=== PATIENT | male | born 1970 ===

== ENCOUNTER 2023-03-29 11:01 | Outpatient (AMB) | payer OTHER, SELFPAY ==
[2023-03-29 11:11] VITALS: BP 128/72; PULSE 82; RESP 16; TEMP 36.6; O2SAT 97; BMI 41.7
--- NOTE | 2023-03-29 11:11 | A.OFFPC_ITS ---
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 Allergies ibuprofen Adverse Reaction (Mild, Uncoded 03/29/23 12:00) affects kidneys. Medication List - Last Reviewed 03/29/23 by Ailin Howard CMA albuterol 90 mcg/actuation 2 puffs q 4 hours as needed for wheezing. dulaglutide (Trulicity) 1.5 mg subcut QWEEK insulin glargine U-300 conc (Toujeo Max U-300 SoloStar) 30 units subcut DAILY lancets As directed metformin 1,000 mg PO BID Tobacco use date assessed: 03/29/23 Dental Screening Dental Screen Date: 03/29/23 Did you have a dental visit in the last 12 months?: Yes Did you have a dental problem in the last 6 months where you did not have access to dental care?: No Was dental information given to patient?: No HPI HPI Comments History of Present Illness Details 52-year-old male presents to establish care. He notes that he was last seen by his previous PCP and had blood work done a year ago. He reports PMH significant for asthma, DM2, chronic lower back pain (L3-L5 fusion) with associated urinary and bowel incontinence, arthritis, left sciatica, anxiety, and depression. His back pain was managed with Tylenol his former PCP. He had physical therapy for his back with some improvement. He attributes his back pain to a fall in 2010. 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 He notes that he is on Trulicity, Metformin, and Toujeo. He states that he has been accessing the ED for disease management and medication refills. He was on medications for anxiety and depression in the past. However, he has not been on psychotropic medication when he lost access with his PCP. He notes that he ran out of his albuterol inhaler 3 months ago. He states that he does not have diabetes supplies for blood glucose testing. He states that he wears incontinence briefs which he obtains [id number] because prescription briefs do not fit well. He notes he has managing his diet and walking to reduce his weight. He lost 36 lb in the past 8 months. He states that he has not followed by Ophthalmology or Podiatry. [facility] Medical History (Updated 03/29/23 @ 15:21 by Trae Mcfarlane CNP) Arthritis Asthma Back pain Back pain with history of spinal surgery Diabetes Incontinence of feces Incontinence of urine Sciatica Swelling of left foot Swelling of right foot Family History (Updated 03/29/23 @ 11:28 by Ailin Howard [facility]) Mother Heart attack Status post double vessel coronary artery bypass Von Willebrand disease Father Diabetes High blood pressure High cholesterol Maternal Grandfather Alzheimer disease Maternal Grandmother Alzheimer disease Paternal Grandfather Alzheimer disease Paternal Grandmother Alzheimer disease Social History (Updated 03/29/23 @ 11:30 by Ailin Howard [facility]) Household Members: Family Housing: Apartment Alcohol intake: former Patient Tobacco Use Status: Never used Tobacco e-Cigarette/Vaping Use: Never Used service: No Current occupational status: employed 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 1. Little interest or pleasure in doing things: nearly every day 2. Feeling down, depressed, or hopeless: nearly every day 3. Trouble falling or staying asleep, or sleeping too much: nearly every day 4. Feeling tired or having little energy: nearly every day 5. Poor appetite or overeating: nearly every day 6. Feeling bad about yourself - or that you are a failure or have let yourself or your family down: nearly every day 7. Trouble concentrating on things, such as reading the newspaper or watching television: nearly every day 8. Moving or speaking so slowly that other people could have noticed. Or the opposite - being so fidgety or restless that you have been moving around a lot more than usual: several days 9. Thoughts that you would be better off or of hurting yourself in some way: not at all Total score: 22 Depression Screening Interpretation: Positive Depression Screening Follow-up: Existing condition, New Medication prescribed and Community Mental Health Worker F/U Source: Developed by Drs. Daniel Tam, Delphine Stahl, Alberto Hu and colleagues, with an educational denise from [employer]. Thrive Questionnaire I am a: Patient What is your living situation today?: I have a steady place to live Within the past 12 months, did the food you bought not last and you didn't have the money to get more?: Sometimes True Within the past 12 months, did you worry whether your food would run out before you got money to buy more?: Sometimes True Do you have trouble paying for medicines?: No Do you have trouble getting transportation to medical appointments?: Yes Do you have trouble paying your heating and electricity bill?: No Do you have trouble taking care of your child, family member or friend?: No Do you have trouble with day-to-day activities such as bathing, preparing meals, shopping, managing finances, etc.?: Yes Are you currently unemployed and looking for a job?: No Are you interested in more education?: No AUDIT C Alcohol Use Questionnaire (AUDIT-C) 1. How often do you have a drink containing alcohol?: Never 3. How often do you have six or more drinks on one occasion?: Never Total Score: 0 LEILANI-7 AMB Questionnaire LEILANI-7 Feeling nervous, anxious, or on edge: 2 = More than half the days Not being able to stop or control worryin = Nearly every day Worrying too much about different things: 3 = Nearly every day Trouble relaxin = Nearly every day Being so restless that it is hard to sit still: 3 = Nearly every day Becoming easily annoyed or irritable: 3 = Nearly every day Feeling afraid as if something awful might happen: 1 = Several days Total LEILANI-7 score (0-4 normal; 5-9 mild; 10-14 moderate; 15-21 severe): 18 Source: Developed by Drs. Daniel Tam, Delphine Stahl, Alberto Hu and colleagues, with an educational denise from [employer]. ACT Questionnaire In the past 4 weeks, how much of the time did your asthma keep you from getting as much done at work, school or at home?: Most of the time During the past 4 weeks, how often have you had shortness of breath?: Once a day During the past 4 weeks, how often did your asthma symptoms wake you up at night or earlier than usual in the morning?: 4 or more nights a week During the past 4 weeks, how often have you had to use your rescue inhaler or nebulizer medication?: 2-3 times a week How would you rate your asthma control during the past 4 weeks?: Poorly controlled Score: 10 Review of Systems Const Details: Const Denies chills, Denies fatigue, Denies fever(s), Denies headache(s) and Denies weakness ENT Denies dizziness and Denies headache(s) Card Denies chest pain, Denies lightheadedness, Denies dyspnea and Denies other (Palpitations) Resp Denies cough, Denies dyspnea, Denies wheezing and Denies other ( shortness of breath) GI Reports bowel incontinence, Denies abdominal pain, Denies melena, Denies hematochezia, Denies change in bowel habits, Denies dyspepsia and Denies nausea Reports urinary incontinence, Denies hematuria and Denies dysuria Musc Reports back pain, Reports left sciatica, Denies abnormal gait, Denies numbness and Denies tingling Skin/Breast Denies rash, Denies unusual bruising and Denies wounds Neuro Denies abnormal gait, Denies dizziness, Denies headache(s), Denies memory loss, Denies numbness, Denies Sensory deficit (Neuro), Denies tingling and Denies weakness Psych Reports anxiety and Reports depression, Denies memory loss Endo Denies cold intolerance, Denies fatigue, Denies heat intolerance, Denies polydipsia and Denies polyuria Aller/Immun Denies wheezing Physical exam (Primary Care) Vital Signs: Last Vital Signs Temp 97.8 F 03/29/23 11:11 Pulse 82 03/29/23 11:11 Resp 16 03/29/23 11:11 BP 128/72 03/29/23 11:11 Pulse Ox 97 03/29/23 11:11 Oxygen Delivery Method Room Air 03/29/23 11:11 BMI result Body Mass Index 41.7 Tobacco/Smoking Status: Tobacco use Status Tobacco use date assessed 03/29/23 03/29/23 11:21 Patient Tobacco Use Status Never used Tobacco 03/29/23 11:30 e-Cigarette/Vaping Use Never Used 03/29/23 11:30 PHQ-9: PHQ-9 Score PHQ-9: Total score 22 03/29/23 12:33 Depression Screening Interpretation: Positive Depression Screening Follow-up: Existing condition, New Medication prescribed and Community Mental Health Worker F/U Const Other: General: no acute distress and well developed Nutritional Appearance: well nourished Orientation/consciousness: patient oriented x3 HENMT Head: Yes normocephalic and Yes atraumatic Eyes General: appearance normal, both eyes and all related structures Pupils: Equal, round and reactive pupils present EOM: EOMs intact bilaterally Resp Effort & Inspection: normal respiratory effort Auscultation: clear to auscultation bilaterally Cardio Rate: regular rate Rhythm: regular rhythm Heart sounds: S1 normal heart sound present, S2 normal heart sound present, no gallops, no murmurs and no rubs GI Palpation (GI): No Abdominal aortic bruit present, Soft to palpation, nontender, No hepatosplenomegaly present and No Rebound tenderness present Auscultation: normal bowel sounds General: Yes no CVA tenderness Back/Spine/Pelvis Back: no CVA tenderness Cervical Spine: cervical ROM normal and No Cervical spine tenderness Thoracic/Lumbar Spine: thoraco-lumbar ROM normal, No pain with thoraco-lumbar ROM, No thoracic spinal tenderness and No lumbar spinal tenderness Extrem General: Yes normal to inspection, No edema and No calf tenderness Positive left straight leg raise Skin General: warm and dry. Normal skin color. Normal skin turgor. Severe dry skin to right hand and feet Lesions: no lesions Rashes: no rashes Trauma: no lacerations or abrasions Wounds: no wounds Nails: fungal infection to nails of the right hands and feet Neuro General: patient oriented x3, gait normal and no focal neuro deficit Cranial nerves: Yes Equal, round and reactive pupils present Cognition (Neuro): normal cognition Gait exam (Neuro): Normal gait present Motor exam (neuro): 5/5 motor strength present throughout Sensory Exam: No Sensory defi unsteady cit (Neuro) Psych Appearance: grossly normal Affect: normal affect Attitude: cooperative Thought process: Normal thought process present Results AMB Hemoglobin A1c AMB Hemoglobin A1c 14.0 % Last Edit by Ailin Howard CMA on 03/29/23 11:51 Results Reviewed Results Reviewed: Laboratory Last Values Hgb A1c (Clinic) 14.0 % (4.0-6.0) H 03/29/23 11:49 Assessment and Plan Assessment & Plan (1) Chronic back pain: Code(s): M54.9 - Dorsalgia, unspecified; G89.29 - Other chronic pain Plan: Reports chronic back and left sciatica pain with associated urinary and bowel incontinence Unsteady gait noted, favoring the left lower extremity Gabapentin ordered. Take as prescribed Continue to take Tylenol as needed for pain Referred to weight management Follow-up with worsening or new symptoms Verbalized understanding and agreed with treatment plan. (2) Left sided sciatica: Code(s): M54.32 - Sciatica, left side Plan: As above (3) Incontinence of feces: Code(s): R15.9 - Full incontinence of feces Plan: As above He states that he wears incontinence briefs which he obtains [id number] because prescription briefs do not fit well (4) Asthma: Code(s): J45.909 - Unspecified asthma, uncomplicated Plan: Reports asthma. He notes that he ran out of his albuterol inhaler 3 months ago His ACT score is 10 and indicates poorly control asthma Albuterol inhaler refilled. Use as prescribed Follow-up with worsening or new symptoms Verbalized understanding and agreed with treatment plan. (5) Diabetes: Code(s): E11.9 - Type 2 diabetes mellitus without complications Plan: His A1c today is 14%, above goal of less than 7.0% Beatriz Alfaro, and metformin refilled. Encouraged to take as prescribed Diabetic supplies ordered for point of care testing. Advised to test blood glucose 3 times a day, record readings, and bring to next appointment ADA diet and routine exercise encouraged Referred to dietitian, nurse educator, and endocrinology Podiatry and Ophthalmology referral made Follow-up in 2 weeks or return sooner with symptoms or concerns Verbalized understanding and agreed with the treatment plan (6) Anxiety and depression: Code(s): F41.9 - Anxiety disorder, unspecified; F32.A - Depression, unspecified Plan: PHQ-9 and LEILANI-7 scores revealed severe depression and anxiety Sertraline ordered. Take as prescribed Routine exercise encouraged He met with the community navigator who will provide resources to help him connect to a therapist Follow-up in 2 weeks or return sooner with worsening or new symptoms Verbalized understanding and agreed with treatment plan. (7) Morbid obesity with BMI of 40.0-44.9, adult: Code(s): E66.01 - Morbid (severe) obesity due to excess calories; Z68.41 - Body mass index [BMI] 40.0-44.9, adult Plan: Routine exercise and healthy diet encouraged Referred to dietitian Verbalized understanding and agreed with treatment plan. (8) Laboratory tests ordered as part of a complete physical exam (CPE): Code(s): Z00.00 - Encounter for general adult medical examination without abnormal findings Plan: Fasting labs ordered as part of a complete physical exam. Advised to fast for at least 10 hours before getting labs drawn. May drink water Verbalized understanding and agreed with treatment plan. Orders: Orders Complete Blood Count Auto Diff Today Z00.00 - Encounter for general adult medical examination without abnormal findings Comprehensive [place]. Panel Fast Today Z00.00 - Encounter for general adult medical examination without abnormal findings Lipid Panel Today Z00.00 - Encounter for general adult medical examination without abnormal findings TSH reflex Free T4 Today Z00.00 - Encounter for general adult medical examination without abnormal findings UA CC w/rflx Micro + Cult Today Z00.00 - Encounter for general adult medical examination without abnormal findings PSA, Ultra Sensitive Today Z00.00 - Encounter for general adult medical examination without abnormal findings Microalbumin, Random (w Creat) Today E11.9 - Type 2 diabetes mellitus without complications AMB Hemoglobin A1c Today Z13.9 - Encounter for screening, unspecified Referrals Endocrinology Referral E11.9 - Type 2 diabetes mellitus without complications Pain Management Referral G89.29 - Other chronic pain, M54.32 - Sciatica, left side, M54.9 - Dorsalgia, unspecified Nurse Navigator Referral E11.9 - Type 2 diabetes mellitus without c omplications, E66.01 - Morbid (severe) obesity due to excess calories, Z68.41 - Body mass index [BMI] 40.0-44.9, adult Nutrition/Dietitian Referral E11.9 - Type 2 diabetes mellitus without complications, E66.01 - Morbid (severe) obesity due to excess calories, Z68.41 - Body mass index [BMI] 40.0-44.9, adult Ophthalmology Referral E11.9 - Type 2 diabetes mellitus without complications Podiatry Referral E11.9 - Type 2 diabetes mellitus without complications Medications: New sertraline 50 mg PO DAILY 30 days 30 tabs 3RF dulaglutide (Trulicity) 1.5 mg subcut QWEEK 4 weeks 4 mL 4RF insulin glargine U-300 conc (Toujeo Max U-300 SoloStar) 30 units (0.1 mL) subcut DAILY 30 days 3 mL 3RF metformin 1,000 mg PO BID 30 days 60 tabs 3RF blood-glucose meter (FreeStyle Lite Meter kit) As directed 1 ea 0RF E11.9 - Type 2 diabetes mellitus without complications blood sugar diagnostic (FreeStyle Lite Strips) As directed TID 100 ea 4RF E11.9 - Type 2 diabetes mellitus without complications lancets (FreeStyle Lancets) As directed 100 ea 4RF E11.9 - Type 2 diabetes mellitus without complications albuterol sulfate 90 mcg/actuation 2 puffs inhalation Q4-6H PRN 8.5 grams 3RF shortness of breath or wheezing gabapentin 300 mg PO BEDTIME 30 caps 1RF 30 days Coding Level of Care Code New Pt Level 3 (57888) Diagnoses Chronic back pain M54.9; G89.29 Left sided sciatica M54.32 Incontinence of feces R15.9 Asthma J45.909 Diabetes E11.9 Anxiety and depression F41.9; F32.A Morbid obesity with BMI of 40.0-44.9, adult E66.01; Z68.41 Laboratory tests ordered as part of a complete physical exam (CPE) Z00.00 Time Spent (min) 35
== END 2023-03-29 14:56 | disposition home or self-care (01) ==
PROVIDERS: PCP Internal Medicine; Visit Provider Nurse Practitioner Family
DX: J45.909 Unspecified asthma, uncomplicated (principal); E66.01 Morbid (severe) obesity due to excess calories; E11.9 Type 2 diabetes mellitus without complications; Z68.41 Body mass index [BMI] 40.0-44.9, adult; F41.9 Anxiety disorder, unspecified; M54.9 Dorsalgia, unspecified; G89.29 Other chronic pain; M54.32 Sciatica, left side; R15.9 Full incontinence of feces; F32.A Depression, unspecified; Z00.00 Encounter for general adult medical examination without abnormal findings; Z13.9 Encounter for screening, unspecified
CPT/HCPCS: 83036; 99203

== ENCOUNTER 2023-03-30 12:21 | Outpatient (AMB) | payer OTHER, SELFPAY ==
--- NOTE | 2023-03-30 12:27 | A.OFFVIS_ITS ---
Intake VS Expanded 03/30/23 12:31 Height 5 ft 8 in Weight 274 lb 6 oz BMI 41.7 Intake Visit Reasons: DM2 Allergies ibuprofen Adverse Reaction (Mild, Uncoded 03/29/23 12:00) affects kidneys. HPI Nutrition Presentation Details Pt presents for MNT for T2DM. Pt was referred by ALLEN Duval 24 hour food recall B: bowl of rice krispies/bananas, or egg and toast, water L; nuggets/ saltine crackers , peanuts , water D: airfried chicken with rice/beans, water or malik nectar juice food frequency: protein: 2-3 times/wk fish sticks/tuna, milk: 1/day yogurt/milk/ice fruit: 0-1/d, Non starchy vegetables: 0-1 serving per day Starches: Greater than 20 servings per day fried : 0-1/x/wk smoking/etoh: denies A1c 14% on 03/2023 QAT-Chnflta-Dh.Jeor Equation Height 5 ft 8 in Weight 274 lb Resting Metabolic Rate 2070.26 Calculated Activity Level Sedentary Calories Needed to Maintain Weight 2484.31 Diagnosis Nutrition problem #1 food nutri know defi As related to (etiology) #1 diagnosis As evidenced by (sign/symptom) #1 no prior educ - nutri rec Monitoring/Goals Nutrition problem monitoring level of knowledge/skill, glucose, fasting and weight Outcome progress verbalized understanding Learning/Education Readiness to learn good Stages of change pre-contemplation Educational materials provided Yes (Carbohydrate sources of foods, meal planning ) Most Recent Diabetes Results: Microalb/Creat Ratio 12.0 ug/mg cr 04/11/23 Cholesterol 173 mg/dL 04/11/23 HDL Cholesterol 34 mg/dL 04/11/23 Triglycerides 127 mg/dL 04/11/23 Creatinine 0.88 mg/dL (0.5-1.4) 04/11/23 Blood Urea Nitrogen 11 mg/dL (9-16) 04/11/23 Sodium 139 mmol/L (135-145) 04/11/23 Potassium 4.2 mmol/L (3.3-5.1) 04/11/23 Chloride 107 mmol/L (96-108) 04/11/23 Carbon Dioxide 24 mmol/L (22-29) 04/11/23 Calcium 9.4 mg/dL (8.4-10.2) 04/11/23 AST 25 U/L (5-37) 04/11/23 ALT 34 U/L (0-40) 04/11/23 Total Protein 7.5 g/dL (6.5-8.0) 04/11/23 Albumin 3.7 g/dL (3.5-5.0) 04/11/23 [facility] Medical History (Updated 03/31/23 @ 12:51 by Melody Camp APRN, OPERATIONS CLERK) Arthritis Asthma Back pain Back pain with history of spinal surgery Diabetes Incontinence of feces Incontinence of urine Lumbar radiculopathy Morbid obesity with BMI of 40.0-44.9, adult Postlaminectomy syndrome, lumbar region Sciatica Swelling of left foot Swelling of right foot Family History (Updated 03/29/23 @ 11:28 by Ailin Howard [facility]) Mother Heart attack Status post double vessel coronary artery bypass Von Willebrand disease Father Diabetes High blood pressure High cholesterol Maternal Grandfather Alzheimer disease Maternal Grandmother Alzheimer disease Paternal Grandfather Alzheimer disease Paternal Grandmother Alzheimer disease Social History (Updated 03/29/23 @ 11:30 by Ailin Howard 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 Cognitive needs: No Hearing needs: No Vision needs: Yes (Patient states he needs glasses.) Assessment & Plan Assessment & Plan (1) Diabetes: Code(s): E11.9 - Type 2 diabetes mellitus without complications Plan: wt: 124 kg Est kcal needs as per MSJ: 2500 (40% carb, 30% protein/fat) Est fluid needs as per 25-30 ml/d: 3100 Est prot per day as per 1 g/kg bw: 124 Recommend fiber intake : 8-10 g per day and gradually increase to 25-28 g per day for women and 35-38 g for men or as tolerated Recommend sodium intake per day : less than 2000 mg Educated patient on: ( R = reviewed V = verbalizes understanding N/R = needs review N/A = not applicable * Food sources of carbohydrate, adequate serving sizes and its role in various health conditions: R * Differences between complex carbohydrates a simple carbohydrates, role of fiber in diet: R * Differences between types of fats and role in diet (mono on saturated fat fatty acids, saturated fatty acids, trans fats): R * Food sources of sodium in salt and healthy modifications for heart health in kidney health: R * Vitamins and minerals: R * Healthy plate method concept: R * Physical activity: Benefits a precaution: R * Hypoglycemia protocol (rule of 15): R * Dietary prevention of Hyperglycemia: R Patient Instructions: Practice mindful eating Reduce on total carbohydrate at mealtime to less than 75 g choosing whole grain foods, following healthy plate method Coding Level of Care Code Nutr Indiv Intake (36866) Diagnoses Diabetes E11.9 Time Spent (min) 40
[2023-03-30 12:31] VITALS: BMI 41.7
[2023-04-12 08:57] VITALS: BMI 41.7
== END 2023-03-30 13:13 | disposition home or self-care (01) ==
PROVIDERS: PCP Nurse Practitioner Family; Visit Provider Dietitian, Registered
DX: E11.9 Type 2 diabetes mellitus without complications (principal)

== ENCOUNTER → 2023-03-30 12:21 | Outpatient (BNVA) | payer OTHER, SELFPAY | PROVIDERS: PCP Nurse Practitioner Family; Visit Provider Dietitian, Registered | DX: E11.9 Type 2 diabetes mellitus without complications (principal); Z71.3 Dietary counseling and surveillance | CPT/HCPCS: 97802 ==

== ENCOUNTER 2023-03-31 10:48 | Outpatient (AMB) | payer OTHER, SELFPAY ==
--- NOTE | 2023-03-31 10:56 | MHC.OFFVIS ---
Intake Vital Signs 03/31/23 11:02 Height 5 ft 8 in Weight 275 lb BMI 41.8 BP 157/91 H Blood Pressure Location Lt brachial Position Sitting Respiration 18 Pulse 78 Pulse Source Pulse Oximeter Pulse Oximetry (%) 97 Oxygen Delivery Method Room Air Intake Visit Reasons: BACK PAIN WITH LEFT SIDED SCIATICA Allergies ibuprofen Adverse Reaction (Mild, Uncoded 03/29/23 12:00) affects kidneys. HPI HPI Comments History of Present Illness Details Jean is a very pleasant 52-year-old male who presents to the office today for evaluation and management of his chronic lower back pain. Patient reports 8/10 left lower back pain that radiates down his left leg into his left foot. He does report some associated left lower extremity weakness, numbness and tingling. Patient status post L3, L4, L5 fusion that was done at [facility] in 2010. He reports after the fusion he developed the LLE neuropathy, weakness and loss of bowel and bladder which is still present however unchanged since the surgery. He reports his last MRI was approximately 7 years ago and he last saw a neurosurgeon approximately 8 years ago. 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 The spinal cord stimulator did provide him with pain relief as well as sensation of bowel and bladder where he was no longer totally incontinent. The plan 7 years ago was to repeat spinal cord stimulator implant however patient was lost to follow-up due to social circumstances. Patient states he last attended physical therapy many years ago, he has tried [id number] medications, muscle relaxers and gabapentin. 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 He had steroid injections at [facility] many years ago and reports that they did not provide him any pain relief. Patient reports the pain is negatively impacting his mobility, functioning, ability to perform activities of daily living, care for himself and his children and is also caused him worsening depression. The patient reports he has been increasing his activity and walking more which does exacerbate his pain. He has recently lost approximately 50 lb with dietary changes and increased activity. He also reports uncontrolled/unmanaged diabetes over the last couple of years due to social circumstances and ultimately losing his primary care doctor. He was receiving his diabetes medications through emergency room visits and states last ER visit his blood sugar was 730. His A1c at recent primary care visit was 14% and his fasting glucose yesterday was 417. In terms of muscle damage condition is described as aching, spasming, shooting, stabbing, sharp, tingling, pins and needles. Patient's past medical history significant for diabetes, arthritis, asthma, urinary or bowel incontinence, post-laminectomy syndrome, failed spinal cord stimulator implant and obesity. Patient denies implantable devices, pacemaker or defibrillator. Patient denies current use of tobacco, alcohol or illicit substances. [facility] Medical History (Updated 03/31/23 @ 12:51 by Melody Camp, HANDHOLE MACHINE OPERATOR, SENIOR SUPPORT ANALYST) Arthritis Asthma Back pain Back pain with history of spinal surgery Diabetes Incontinence of feces Incontinence of urine Lumbar radiculopathy Morbid obesity with BMI of 40.0-44.9, adult Postlaminectomy syndrome, lumbar region Sciatica Swelling of left foot Swelling of right foot Family History (Updated 03/29/23 @ 11:28 by Ailin Howard [facility]) Mother Heart attack Status post double vessel coronary artery bypass Von Willebrand disease Father Diabetes High blood pressure High cholesterol Maternal Grandfather Alzheimer disease Maternal Grandmother Alzheimer disease Paternal Grandfather Alzheimer disease Paternal Grandmother Alzheimer disease Social History (Updated 03/29/23 @ 11:30 by Ailin Howard [facility]) Household Members: Family Housing: Apartment Alcohol intake: former Patient Tobacco Use Status: Never used Tobacco e-Cigarette/Vaping Use: Never Used service: No Current occupational status: employed 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 Answers questions appropriately. Fully engaged in examination. Skin: warm, dry, intact without visible rashes or lesions. HEENT: Normocephalic. Conjuntivae clear without exudate. Sclera non-icteric. Hearing intact. Cardiac: External chest normal in appearance. Respiratory: No signs of trauma. No signs of respiratory distress. No cough, audible wheezing or stridor. Abdomen: without gross distension. MS: No obvious swelling or deformities. Neurological: Oriented to person, place, time and situation. Thought process intact. Psychiatric: Appropriate mood and affect. Good judgment and insight. Back/Spine/Pelvis Other: Lumbar exam: Able to stand on bilateral tiptoes and bilateral heels. Able to transition from sit to stand unassisted. Ambulates with bilaterally normal heel strike and toe off Tender to palpation over paraspinal muscles Strength: 5/5 BLE Sensation: intact and symmetric BLE DTR: intact and symmetric Straight leg raise with and without dorsiflexion positive on left. Facet loading positive bilaterally LARRY positive bilaterally Assessment & Plan Assessment & Plan (1) Lumbar radiculopathy: Code(s): M54.16 - Radiculopathy, lumbar region (2) Morbid obesity with BMI of 40.0-44.9, adult: Code(s): E66.01 - Morbid (severe) obesity due to excess calories; Z68.41 - Body mass index [BMI] 40.0-44.9, adult (3) Chronic back pain: Code(s): M54.9 - Dorsalgia, unspecified; G89.29 - Other chronic pain (4) Postlaminectomy syndrome, lumbar region: Code(s): M96.1 - Postlaminectomy syndrome, not elsewhere classified Plan Jean is a very pleasant 52-year-old male who presented to the office today for evaluation management of his chronic lower back pain secondary to post-laminectomy syndrome. 1. Medical records have been requested from [facility], [facility]. 2. MRI without contrast ordered today, patient with complicated surgical history of his back with significant neuro deficits including radiculopathy and urinary/bowel incontinence. MRI was not ordered STAT as these are not new symptoms and have been ongoing for many years. May consider referral to Dr. Patterson for evaluation pending MRI results. 3. PT eval and treat to assist with mobility, strengthening and core support. Lengthy discussion with patient advising that he would be best managed with SCS, however he would need to drastically improve his blood glucose control and lower his A1C to below 8. Advised patient to ensure that he follows up with endocrinology as referred at recent PCP visit. Once A1C is better controlled he would need psych eval prior to SCS trial. Patient will be referred for psych eval once his diabetes is better controlled and can be considered a candidate for implantable device. Discussed options for treatment including diagnostic interventional testing, epidural steroid injections, peripheral nerve stimulation with Sprint, RFA and more permanent neuromodulation. Informational pamphlets provided. Patient will follow up here after MRI to review results. All questions and concerns have been answered and patient agrees with the plan. Follow up after injections and sooner if needed. Orders: Orders MR lumbar spine wo con Today E66.01 - Morbid (severe) obesity due to excess calories, M54.16 - Radiculopathy, lumbar region, M96.1 - Postlaminectomy syndrome, not elsewhere classified, Z68.41 - Body mass index [BMI] 40.0-44.9, adult PT Evaluation and Treatment Today G89.29 - Other chronic pain, M54.16 - Radiculopathy, lumbar region, M54.9 - Dorsalgia, unspecified, M96.1 - Postlaminectomy syndrome, not elsewhere classified Coding Level of Care Code New Pt Level 4 (02049) Diagnoses Lumbar radiculopathy M54.16 Morbid obesity with BMI of 40.0-44.9, adult E66.01; Z68.41 Chronic back pain M54.9; G89.29 Postlaminectomy syndrome, lumbar region M96.1
[2023-03-31 11:02] VITALS: BP 157/91; PULSE 78; RESP 18; O2SAT 97; BMI 41.8
== END 2023-03-31 11:49 | disposition home or self-care (01) ==
PROVIDERS: PCP Nurse Practitioner Family; Visit Provider Registered Nurse Emergency
DX: M54.16 Radiculopathy, lumbar region (principal); E66.01 Morbid (severe) obesity due to excess calories; Z68.41 Body mass index [BMI] 40.0-44.9, adult; M54.9 Dorsalgia, unspecified; G89.29 Other chronic pain; M96.1 Postlaminectomy syndrome, not elsewhere classified
CPT/HCPCS: 99204

== ENCOUNTER → 2023-03-31 10:48 | Outpatient (BNVA) | payer OTHER, SELFPAY | PROVIDERS: PCP Nurse Practitioner Family; Visit Provider Registered Nurse Emergency | DX: M54.16 Radiculopathy, lumbar region (principal); G89.29 Other chronic pain; M54.9 Dorsalgia, unspecified; M96.1 Postlaminectomy syndrome, not elsewhere classified; E66.01 Morbid (severe) obesity due to excess calories; Z68.41 Body mass index [BMI] 40.0-44.9, adult | CPT/HCPCS: 99202 ==

== ENCOUNTER 2023-04-11 11:27 | Outpatient (REF) | payer OTHER, SELFPAY ==
[2023-04-11 13:42] LABS: MANUAL DIFF FLAG NO
[2023-04-11 13:54] LABS: Basophils Percent Auto 0.4 % (0-2); Eosinophils Absolute Auto 0.1 X10*3/uL (0.0-0.4); Eosinophils Percent Auto 1.6 % (0-4); Hematocrit 51.1 % (42.0-52.0); Imm Gran Abs Auto 0.01 X10*3/uL (0.00-0.03); Imm Gran Pct Auto 0.2 % (0.0-0.4); Lymphocytes Absolute Auto 2.8 X10*3/uL (1.2-4.9); Mean Corpuscular HGB Conc 31.3 g/dl (31.0-36.0); Mean Corpuscular Volume 86.2 fL (80.0-98.0); Mean Platelet Volume 10.6 fL (9.4-12.4); Monocytes Absolute Auto 0.5 X10*3/uL (0.1-1.2); Monocytes Percent Auto 8.3 % (2-11); Neutrophils Absolute Auto 2.1 x10*3/uL (2.0-8.3); Neutrophils Percent Auto 38.5 % (45-73); Platelet Count 276 X10*3/uL (160-400); Red Blood Count 5.93 X10*6/uL (4.60-5.80); Red Cell Distribution Width 13.4 % (11.0-16.0); White Blood Count 5.5 X10*3/uL (4.8-10.8)
[2023-04-11 13:59] LABS: Appearance Urine Clear; Color Urine Yellow; Glucose Urine UA Negative (Negative); Leukocyte Esterase Urine Negative (Negative); Nitrite Urine Negative (Negative); PH 5.5 (5.0-9.0); Specific Gravity - Urine 1.015 (1.005-1.025); Urine Blood Negative (Negative); Urine Ketones Trace mg/dL (Negative); Urine Protein Negative (Neg-Trace)
[2023-04-11 14:25] LABS: Alanine Aminotransferase 34 U/L (0-40); Albumin Level 3.7 g/dL (3.5-5.0); Alkaline Phosphatase 108 U/L (39-117); Anion Gap 12 (12-20); Aspartate Amino Transferase 25 U/L (5-37); Bilirubin Total 0.5 mg/dL (0.0-1.0); Blood Urea Nitrogen 11 mg/dL (9-16); Calcium 9.4 mg/dL (8.4-10.2); Carbon Dioxide 24 mmol/L (22-29); Chloride 107 mmol/L (96-108); Cholesterol 173 mg/dL; Creatinine Urine 83.29 mg/dL; Estimated Glomerular Filt Rate > 60; Glucose Fasting 140 mg/dL (60-99); HDL Cholesterol 34 mg/dL; LDL Cholesterol Calculated 114 mg/dl; Potassium 4.2 mmol/L (3.3-5.1); Sodium 139 mmol/L (135-145); Total Protein 7.5 g/dL (6.5-8.0); Triglycerides 127 mg/dL
[2023-04-11 14:42] LABS: TSH reflex Free T4 0.78 uIU/mL (0.32-4.0)
[2023-04-15 17:44] LABS: PSA, Ultra Sensitive 1.03 ng/mL
== END 2023-04-11 11:28 | disposition home or self-care (01) ==
LOC: HO.HMGCLDS 11:27
PROVIDERS: PCP Nurse Practitioner Family; Visit Provider Nurse Practitioner Family
DX: Z00.00 Encounter for general adult medical examination without abnormal findings (principal); Z12.5 Encounter for screening for malignant neoplasm of prostate; E11.9 Type 2 diabetes mellitus without complications
CPT/HCPCS: 36415; 80053; 80061; 81003; 82043; 84153; 84443; 85025

== ENCOUNTER 2023-04-14 15:58 | Outpatient (AMB) | payer OTHER, SELFPAY ==
--- NOTE | 2023-04-14 16:00 | MHC.PC.OV ---
Vital Signs 04/14/23 16:02 Height 5 ft 8 in Weight 277 lb BMI 42.1 BP 126/72 Blood Pressure Location Lt brachial Position Sitting Pulse 78 Pulse Source Pulse Oximeter Pulse Oximetry (%) 98 Intake Visit Reasons: 2 wks DM, asthma, chronic pain,anxiety, depression Intake Note: pt is here for 2 wk f/u DM, asthma, chronic pain, anxiety, depression Allergies ibuprofen Adverse Reaction (Mild, Uncoded 04/14/23 16:16) affects kidneys. Medication List - Last Reconciled 04/14/23 by Trae Mcfarlane CNP albuterol sulfate 90 mcg/actuation (Ventolin HFA) 2 puffs inhalation Q4-6H PRN blood sugar diagnostic (MumboeTouch Ultra Test strips) As directed TID blood-glucose meter (MumboeTouch Ultra2 Meter) As directed dulaglutide (Trulicity) 1.5 mg subcut QWEEK 4 weeks gabapentin 300 mg PO BEDTIME 30 days insulin glargine U-300 conc (Toujeo Max U-300 SoloStar) 30 units (0.1 mL) subcut DAILY 30 days lancets (MumboeTouch UltraSoft 2 Lancet) As directed TID lancets As directed metformin 1,000 mg PO BID 30 days sertraline 50 mg PO DAILY 30 days Tobacco use date assessed: 03/29/23 Dental Screening Dental Screen Date: 04/14/23 Did you have a dental visit in the last 12 months?: Yes Did you have a dental problem in the last 6 months where you did not have access to dental care?: No Was dental information given to patient?: Patient has dentist HPI HPI Comments History of Present Illness Details 52-year-old male presents for diabetes, asthma, chronic back pain, anxiety, and depression follow-up. He established care 2 weeks ago. He was prescribed sertraline and gabapentin. His diabetic meds and supplies were renewed. His albuterol inhaler was refilled. He was referred to pain management, Endocrinology, Ophthalmology, and Podiatry. Labs were ordered. He met with the community navigator who provided resources to help him connect to a therapist. He states that he has been taking Sertraline as prescribed with no significant improvement. He reports itching underneath the skin fold of his abdomen for the past 1 month. He states that the gabapentin is helping his back pain. He notes he was not given albuterol inhaler form the pharmacy. He notes he has been seen medical field representative and pain management. He has an appointment with pulmonology next month. He has not heard from endocrinology, ophthalmology, and podiatry. He also has not heard from a therapist. [facility] Medical History (Updated 04/14/23 @ 16:48 by Trae Mcfarlane CNP) Arthritis Asthma Back pain Back pain with history of spinal surgery Diabetes Incontinence of feces Incontinence of urine Lumbar radiculopathy Morbid obesity with BMI of 40.0-44.9, adult Postlaminectomy syndrome, lumbar region Sciatica Swelling of left foot Swelling of right foot Family History (Updated 03/29/23 @ 11:28 by Ailin Howard [facility]) Mother Heart attack Status post double vessel coronary artery bypass Von Willebrand disease Father Diabetes High blood pressure High cholesterol Maternal Grandfather Alzheimer disease Maternal Grandmother Alzheimer disease Paternal Grandfather Alzheimer disease Paternal Grandmother Alzheimer disease Social History (Updated 03/29/23 @ 11:30 by Ailin Howard [facility]) Household Members: Family Housing: Apartment Alcohol intake: former Patient Tobacco Use Status: Never used Tobacco e-Cigarette/Vaping Use: Never Used service: No Current occupational status: employed 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 1. Little interest or pleasure in doing things: several days 2. Feeling down, depressed, or hopeless: nearly every day 3. Trouble falling or staying asleep, or sleeping too much: nearly every day 4. Feeling tired or having little energy: nearly every day 5. Poor appetite or overeating: more than half the days 6. Feeling bad about yourself - or that you are a failure or have let yourself or your family down: more than half the days 7. Trouble concentrating on things, such as reading the newspaper or watching television: more than half the days 8. Moving or speaking so slowly that other people could have noticed. Or the opposite - being so fidgety or restless that you have been moving around a lot more than usual: several days 9. Thoughts that you would be better off or of hurting yourself in some way: not at all Total score: 17 Depression Screening Interpretation: Positive Depression Screening Follow-up: Existing condition and In treatment 51654 - PHQ-9 Billing: Yes Source: Developed by Drs. Daniel Tam, Delphine Stahl, Alberto Hu and colleagues, with an educational denise from [email or web address]. LEILANI-7 AMB Questionnaire LEILANI-7 Date LEILANI - 7 assessed: 04/14/23 Feeling nervous, anxious, or on edge: 3 = Nearly every day Not being able to stop or control worryin = Nearly every day Worrying too much about different things: 3 = Nearly every day Trouble relaxin = Nearly every day Being so restless that it is hard to sit still: 3 = Nearly every day Becoming easily annoyed or irritable: 3 = Nearly every day Feeling afraid as if something awful might happen: 0 = Not at all Total LEILANI-7 score (0-4 normal; 5-9 mild; 10-14 moderate; 15-21 severe): 18 Source: Developed by Drs. Daniel Tam, Delphine Stahl, Alberto Hu and colleagues, with an educational denise from [email or web address]. LEILANI-7 Assessment Billing LEILANI-7 Assessment Tool: LEILANI-7 Assessment 15327 ACT Questionnaire In the past 4 weeks, how much of the time did your asthma keep you from getting as much done at work, school or at home?: Some of the time During the past 4 weeks, how often have you had shortness of breath?: More than once a day During the past 4 weeks, how often did your asthma symptoms wake you up at night or earlier than usual in the morning?: Once or twice per week During the past 4 weeks, how often have you had to use your rescue inhaler or nebulizer medication?: More than 3 times per day (uses his sons, does not have one for himself ) How would you rate your asthma control during the past 4 weeks?: Poorly controlled ACT Interpretation: Positive ACT Branch: Change in medication Score: 11 Review of Systems Const Details: Const Denies chills, Denies fatigue, Denies fever(s), Denies headache(s) and Denies weakness ENT Denies dizziness and Denies headache(s) Card Denies chest pain, Denies lightheadedness, Denies dyspnea and Denies other (Palpitations) Resp Denies cough, Denies dyspnea, Denies wheezing and Denies other ( shortness of breath) GI Denies abdominal pain, Denies melena, Denies hematochezia, Denies change in bowel habits, Denies dyspepsia and Denies nausea Denies hematuria and Denies dysuria Musc Denies abnormal gait, Denies myalgias, Denies arthralgias, Denies numbness and Denies tingling Skin/Breast Report itching, Denies rash, Denies unusual bruising and Denies wounds Neuro Denies abnormal gait, Denies dizziness, Denies headache(s), Denies memory loss, Denies numbness, Denies Sensory deficit (Neuro), Denies tingling and Denies weakness Psych Reports anxiety and Reports depression, Denies memory loss Endo Denies fatigue Aller/Immun Denies wheezing Physical exam (Primary Care) Vital Signs: Last Vital Signs Pulse 78 04/14/23 16:02 BP 126/72 04/14/23 16:02 Pulse Ox 98 04/14/23 16:02 BMI result Body Mass Index 42.1 Tobacco/Smoking Status: Tobacco use Status Tobacco use date assessed 03/29/23 04/14/23 16:01 Patient Tobacco Use Status Never used Tobacco 04/14/23 16:01 e-Cigarette/Vaping Use Never Used 04/14/23 16:01 PHQ-9: PHQ-9 Score PHQ-9: Total score 17 04/14/23 16:14 Depression Screening Interpretation: Positive Depression Screening Follow-up: Existing condition and In treatment Const Other: General: no acute distress and well developed Nutritional Appearance: well nourished Orientation/consciousness: patient oriented x3 HENDC Head: Yes normocephalic and Yes atraumatic Eyes General: appearance normal, both eyes and all related structures Pupils: Equal, round and reactive pupils present EOM: EOMs intact bilaterally Resp Effort & Inspection: normal respiratory effort Auscultation: clear to auscultation bilaterally Cardio Rate: regular rate Rhythm: regular rhythm Heart sounds: S1 normal heart sound present, S2 normal heart sound present, no gallops, no murmurs and no rubs GI Palpation (GI): No Abdominal aortic bruit present, Soft to palpation, nontender, No hepatosplenomegaly present and No Rebound tenderness present Auscultation: normal bowel sounds General: Yes no CVA tenderness Back/Spine/Pelvis Back: no CVA tenderness Cervical Spine: cervical ROM normal and No Cervical spine tenderness Thoracic/Lumbar Spine: thoraco-lumbar ROM normal, No pain with thoraco-lumbar ROM, No thoracic spinal tenderness and No lumbar spinal tenderness Extrem General: Yes normal to inspection, No edema and No calf tenderness Skin General: warm and dry. Normal skin color. Normal skin turgor Lesions: no lesions Rashes: Depigmentation of the skin underneath the abdomen; consistent with fungal rash Trauma: no lacerations or abrasions Wounds: no wounds Nails: normal Neuro General: patient oriented x3, gait normal and no focal neuro deficit Cranial nerves: Yes Equal, round and reactive pupils present Cognition (Neuro): normal cognition Gait exam (Neuro): Normal gait present Sensory Exam: No Sensory deficit (Neuro) Psych Appearance: grossly normal Affect: normal affect Attitude: cooperative Thought process: Normal thought process present Assessment and Plan Assessment & Plan (1) Diabetes: Code(s): E11.9 - Type 2 diabetes mellitus without complications Plan: Continue with current diabetic treatment regimen ADA diet and routine exercise encouraged Continue follow-up with medical field representative Recent blood work reviewed with the patient. LDL is 114, slightly above goal of less than 100. Advised to limit foods high in saturated fat and avoid foods high in trans fat Check blood glucose 3 times a day, document readings, and bring to next appointment Verbalized understanding and agreed with the treatment plan. (2) Asthma: Code(s): J45.909 - Unspecified asthma, uncomplicated Plan: He notes he was not given albuterol inhaler form the pharmacy Possibly due to nationwide shortage of albuterol inhaler ACT score is 10, poorly controlled asthma Ventolin ordered. Use as prescribed Follow-up with pulmonology as planned Return with worsening or new symptoms Verbalized understanding and agreed with treatment plan. (3) Chronic back pain: Code(s): M54.9 - Dorsalgia, unspecified; G89.29 - Other chronic pain Plan: He states that he has been taking Sertraline as prescribed with no significant improvement Continue to take gabapentin as prescribed May take ibuprofen or Tylenol for pain or discomfort Warm/cold compresses encouraged Follow-up with pain management as planned Return with worsening or new symptoms Verbalized understanding and agreed with treatment plan. (4) Anxiety and depression: Code(s): F41.9 - Anxiety disorder, unspecified; F32.A - Depression, unspecified Plan: PHQ-9 and LEILANI-7 scores revealed moderately severe depression and severe anxiety Continue to take sertraline as prescribed Routine exercise encouraged Advised to contact the nurse navigator if is not contacted to schedule an appointment with a therapist within the next week Follow-up in 1 month or return sooner with new or worsening symptoms Verbalized understanding and agreed with treatment plan. (5) Morbid obesity with BMI of 40.0-44.9, adult: Code(s): E66.01 - Morbid (severe) obesity due to excess calories; Z68.41 - Body mass index [BMI] 40.0-44.9, adult Plan: BMI is 42.1 Healthy diet and routine exercise encouraged Continue follow-up with medical field representative Return with concerns or symptoms Verbalized understanding and agreed with treatment plan. (6) Fungal rash of torso: Code(s): B36.9 - Superficial mycosis, unspecified Plan: Reports itching underneath the skin fold of his abdomen for the past 1 month Depigmentation of the skin underneath the abdomen; consistent with fungal rash Nystatin cream ordered. Use as prescribed Follow-up with worsening or new signs and symptoms Verbalized understanding and agreed with treatment plan. Medications: New albuterol sulfate 90 mcg/actuation (Ventolin HFA) 2 puffs inhalation Q4-6H PRN 8.5 grams 3RF shortness of breath or wheezing nystatin apply on affected skin 1 appl topical QID 14 days 30 grams 1RF B37.2 - Candidiasis of skin and nail Coding Level of Care Code Est Pt Level 4 (00870) Diagnoses Diabetes E11.9 Asthma J45.909 Chronic back pain M54.9; G89.29 Anxiety and depression F41.9; F32.A Morbid obesity with BMI of 40.0-44.9, adult E66.01; Z68.41 Fungal rash of torso B36.9 Additional Codes LEILANI-7 Assessment Billing - LEILANI-7 Assessment Tool: LEILANI-7 Assessment 59174 ([id number]) Time Spent (min) 35
[2023-04-14 16:02] VITALS: BP 126/72; PULSE 78; O2SAT 98; BMI 42.1
== END 2023-04-14 16:40 | disposition home or self-care (01) ==
PROVIDERS: PCP Nurse Practitioner Family; Visit Provider Nurse Practitioner Family
DX: E11.9 Type 2 diabetes mellitus without complications (principal); J45.909 Unspecified asthma, uncomplicated; F41.9 Anxiety disorder, unspecified; F32.A Depression, unspecified; M54.9 Dorsalgia, unspecified; G89.29 Other chronic pain; E66.01 Morbid (severe) obesity due to excess calories; Z68.41 Body mass index [BMI] 40.0-44.9, adult; B36.9 Superficial mycosis, unspecified
CPT/HCPCS: 96127; 99214

== ENCOUNTER 2023-04-20 10:51 | Outpatient (RCR) | payer OTHER, SELFPAY ==
[2023-04-20 11:14] VITALS: BP 161/79; PULSE 64; O2SAT 97
--- NOTE | 2023-04-20 13:09 | MHC.PT.EP ---
[facility] [place] [facility] [place] [facility] [place] [facility] [address] Gege Dubon [address] [phone] F: [phone] F: [phone] F: [phone] F: [phone] Physical Therapy Plan of Care Date of Evaluation: Date of Surgery: 2011 Diagnosis: POSTLAMINECTOMY SYNDROME, RADICULOPATHY LUMBAR REGION Assessment: 52 YO MALE REF TO PT WITH DX OF POST LAMINECTOMY SYNDROME, CHRONIC LBP, LUMBAR RADICULOPATHY- OF SIGNIFICANCE, THE Pt HAS A H/O LUMBAR FUSION L3-L4-L5 IN 2011 AND HAS HAD PERSISTENT PAIN AND PROGRESSIVE BOWEL/BLADDER INCONTINENCE SINCE. HE HAD AN IMPLANTED STIMULATOR, WHICH PROVIDED RELIEF, BUT DUE TO AN INFECTION, OIT WAS REMOVED. 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 OBJECTIVE FINDINGS: DECR POSTURE, (+) TISSUE TENSION AND IRRIT IN GERTRUDE THORACOLS PS AND GERTRDUE HIP MM, DECR TRUNK AND HIP AROM, (+) LUMBOPELVIC ASYMM; STRENGTH DEFICITS IN HIS LUMBOPELVIC/ PROX LEs, AND PER Pt, CONSTANT LS PAIN 7/10 INTO GERTRUDE HIPS AND HEELS. FUNCTIONALLY, THE Pt IS LIMITED W TRANSITIONAL MVMTS, ALTERED AND INEFFICIENT GAIT, LIMITED SQUAT MECH, DECR AUNDREA TO PROLONGED STANDING AND WALKING, FECAL AND URINALRY INCONTINENCE CONCERNS, AND DIFFIC WITH PHYSICALLY DEMANDING TASKS. THE Pt WOULD BENEFIT FORM PT TO ADDRESS THE ABOVE FINDINGS-> SOFT TISSUE MOB/ STAB/ STRENGTHENING, DEV A HEP AND SELF-SX STRATEGIES, AND PAIN MGMT ABLE TO MAXIMIZE HIS FUNCTIONAL INDEPENDENCE. Frequency and Duration: The patient will be seen 2 x WK x 5 WKS Short Term Goals: *Pt DEMON IMPROVED POSTURAL SELF-CORRECT *Pt DEMON PROPER SQUAT MECHANICS TO REDUCE POSTERIOR CHAIN TISSUE TENSION *ED AND Pt DEMON PROPER ABDOM / LUMBOPELVIC STAB INITIATE HEP *DECR THORACOLUMB PAIN TO 3-4/10 AND HEEL PAIN DECR BY 50% *IMPROVE HIP FLEXIBILITY AND TRUNK AROM Longterm Goals: *Pt INDEP W SELF-CORRECT POSTURE AND DEMON IMPROVED, MORE EFFICIENT BODY MECH W SIMUL ADLs/ WORK TASKS *Pt WILL IMPROVE LUMBOPELVIC/ LEs STRENGTH BY 1 GRADE *Pt PERFORM REG ADLs AND FITNESS ROUTINE EVIDENT W IMPROVED OSWESTRY SCORE (AT EVAL ) *Pt INDEP W PROGR HEP AND SELF-SX MGMT TECHN Treatment Plan: Modalities to reduce pain, spasms and effusion. Manual therapy to restore motion and function. Therapeutic exercise to improve strength and flexibility. Neuromuscular re-education for posture and balance. Therapeutic activities to return to functional activities of daily living. Electronically signed by: RUI YADAV,PT Please sign and return to therapist. Thank you for your referral.
--- NOTE | 2023-05-10 11:40 | MHC.PT.DC ---
[facility] [place] [facility] [place] [facility] [place] Office [address] Gege Dubon 140 [facility] [phone] F: [phone] F: [phone] F: [phone] F: [phone] Physical Therapy Discharge Report Diagnosis: POSTLAMINECTOMY SYNDROME, RADICULOPATHY LUMBAR REGION Date of Surgery: 2011 Date of Evaluation: 04/20/23 Date of Discharge: 05/10/23 Treatments to Date: 1 Cancellations to Date: 1 No Shows to Date: 3 Discharge Status: Patient Elected to Stop Visit Non-compliance Discharge Summary: THE Pt WAS A GOOD PT CANDIDATE, HOWEVER, HE DID NOT ATTEND F/U PT APPTS. HE IS THEREFORE D/C PER OUR PT DEPT ATTENDANCE POLICY. HE DID NOT MEET HIS GOALS. Electronically signed by: RUI YADAV,PT Please sign and return to therapist. Thank you for your referral.
== END 2023-05-10 11:41 | disposition home or self-care (01) ==
LOC: HO.PT 10:51
PROVIDERS: PCP Nurse Practitioner Family; Visit Provider Registered Nurse Emergency
DX: M96.1 Postlaminectomy syndrome, not elsewhere classified (principal); M54.16 Radiculopathy, lumbar region; M54.9 Dorsalgia, unspecified
CPT/HCPCS: 97162; 97530

== ENCOUNTER 2023-06-16 12:21 | Outpatient (AMB) | payer OTHER, SELFPAY ==
[2023-06-16 12:26] VITALS: BP 122/84; PULSE 87; TEMP 36.7; O2SAT 99; BMI 43.8
--- NOTE | 2023-06-16 12:26 | A.OFFPC_ITS ---
Vital Signs 06/16/23 12:26 Height 5 ft 8 in Weight 288 lb 4 oz BMI 43.8 BP 122/84 Blood Pressure Location Lt brachial Position Sitting Pulse 87 Pulse Source Pulse Oximeter Temp 98.1 F Temp Source Oral Pulse Oximetry (%) 99 Oxygen Delivery Method Room Air Intake Visit Reasons: 1 mth anxiety depression Intake Note: Patient is here to follow up on anxiety and depression. Pain in right shoulder is getting worse. Allergies ibuprofen Adverse Reaction (Mild, Uncoded 06/16/23 12:43) affects kidneys. Medication List - Last Reviewed 06/16/23 by Maame Anderson MA albuterol sulfate 90 mcg/actuation (Ventolin HFA) 2 puffs inhalation Q4-6H PRN blood sugar diagnostic (OneTouch Ultra Test strips) As directed TID blood-glucose meter (EquidateTouch Ultra2 Meter) As directed dulaglutide (Trulicity) 3 mg subcut QWEEK gabapentin 300 mg PO BEDTIME 30 days insulin glargine U-300 conc (Toujeo Max U-300 SoloStar) 34 units subcut DAILY lancets (EquidateTouch UltraSoft 2 Lancet) As directed TID lancets As directed metformin 1,000 mg PO BID 30 days nystatin 1 appl topical QID 14 days venlafaxine ER 75 mg PO DAILY 30 days Tobacco use date assessed: 06/16/23 Dental Screening Dental Screen Date: 06/16/23 Did you have a dental visit in the last 12 months?: Yes Did you have a dental problem in the last 6 months where you did not have access to dental care?: No Was dental information given to patient?: Patient has dentist HPI HPI Comments History of Present Illness Details 52-year-old male presents for anxiety an d depression follow-up. He has past medical history significant for diabetes, asthma, and chronic back pain. Admits to taking his medications as prescribed. He states that sertraline has not been effective in relieving his anxiety and depression symptoms. His symptoms have progressively worsened. He admits to exercising by walking for 4-5 miles daily. He was evaluated by [facility] pain management, for chronic back pain, on 03/31/2023. MRI was ordered. May referred to customer support specialist depending on MRI results. He was referred to physical therapy. His spinal cord stimulator trial was recommended. However, the patient's A1c has to be below 8%. He was advised to follow-up with trench digger as planned. Multiple treatment modalities for his back pain were discussed. He was advised to follow-up after the MRI is done and resulted. He notes that he started going to PT after 2 sessions due to He was evaluated by [facility] endocrinology on 02/15/2023. His A1c was 10.0%, above goal of less that 7.0% but significant improvement from previous A1C which was 14.0% in March.He notes that he is scheduled to follow up in August. He states he was maintaining a healthy diet until 2 weeks ago when he started eating poorly while he is working on the overnight. He attributes his poor eating habit to increased anxiety and depression symptoms. He gained 11 lb since his last 2 months ago. He is currently being followed by endocrinology, pulmonology, dietitian, and pain management. [facility] Medical History Postlaminectomy syndrome, lumbar region Lumbar radiculopathy Morbid obesity with BMI of 40.0-44.9, adult Asthma Incontinence of urine Incontinence of feces Swelling of right foot Swelling of left foot Arthritis Sciatica Back pain with history of spinal surgery Back pain Diabetes Family History (Reviewed 06/16/23 @ 12:30 by Ailin Howard [facility]) Mother Heart attack Status post double vessel coronary artery bypass Von Willebrand disease Father Diabetes High blood pressure High cholesterol Maternal Grandfather Alzheimer disease Maternal Grandmother Alzheimer disease Paternal Grandfather Alzheimer disease Paternal Grandmother Alzheimer disease Social History (Reviewed 06/16/23 @ 12:30 by Ailin Howard 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 1. Little interest or pleasure in doing things: nearly every day 2. Feeling down, depressed, or hopeless: nearly every day 3. Trouble falling or staying asleep, or sleeping too much: nearly every day 4. Feeling tired or having little energy: nearly every day 5. Poor appetite or overeating: nearly every day 6. Feeling bad about yourself - or that you are a failure or have let yourself or your family down: more than half the days 7. Trouble concentrating on things, such as reading the newspaper or watching television: nearly every day 8. Moving or speaking so slowly that other people could have noticed. Or the opposite - being so fidgety or restless that you have been moving around a lot more than usual: nearly every day 9. Thoughts that you would be better off or of hurting yourself in some way: not at all Total score: 23 Source: Developed by Drs. Daniel Tam, Delphine Stahl, Alberto Hu and colleagues, with an educational denise from [employer]. LEILANI-7 AMB Questionnaire LEILANI-7 Date LEILANI - 7 assessed: 06/16/23 Feeling nervous, anxious, or on edge: 3 = Nearly every day Not being able to stop or control worryin = Nearly every day Worrying too much about different things: 3 = Nearly every day Trouble relaxin = Nearly every day Being so restless that it is hard to sit still: 3 = Nearly every day Becoming easily annoyed or irritable: 3 = Nearly every day Feeling afraid as if something awful might happen: 1 = Several days Total LEILANI-7 score (0-4 normal; 5-9 mild; 10-14 moderate; 15-21 severe): 19 Source: Developed by Drs. Daniel Tam, Delphine Stahl, Alberto Hu and colleagues, with an educational denise from [employer]. Physical exam (Primary Care) Vital Signs: Last Vital Signs Temp 98.1 F 06/16/23 12:26 Pulse 87 06/16/23 12:26 BP 122/84 06/16/23 12:26 Pulse Ox 99 06/16/23 12:26 Oxygen Delivery Method Room Air 06/16/23 12:26 BMI result Body Mass Index 43.8 Tobacco/Smoking Status: Tobacco use Status Tobacco use date assessed 06/16/23 06/16/23 12:37 Patient Tobacco Use Status Never used Tobacco 06/16/23 12:37 e-Cigarette/Vaping Use Never Used 06/16/23 12:37 PHQ-9: PHQ-9 Score PHQ-9: Total score 23 06/16/23 14:01 Assessment and Plan Assessment & Plan (1) Anxiety and depression: Code(s): F41.9 - Anxiety disorder, unspecified; F32.A - Depression, unspecified Plan: PHQ-9 and LEILANI-7 scores revealed severe depression and anxiety His complex health history including chronic pain may be contributing to his anxiety and depression Sertraline discontinued Venlafaxine ordered. Take as prescribed Routine exercise encouraged Message sent to the community navigator to referred the patient to a psychiatrist Continue follow-up with endocrinology, pain management, special education professional, and pulmonology as planned Follow-up in 2 weeks or return sooner with worsening or new symptoms Verbalized understanding and agreed with treatment plan. Medications: New venlafaxine ER 75 mg PO DAILY 30 days 30 caps 3RF Discontinued sertraline Discontinued Reason: Change Referral Type 50 mg PO DAILY 30 days 30 tabs 3RF Coding Level of Care Code Est Pt Level 3 (73641) Diagnoses Anxiety and depression F41.9; F32.A
== END 2023-06-16 13:28 | disposition home or self-care (01) ==
PROVIDERS: PCP Nurse Practitioner Family; Visit Provider Nurse Practitioner Family
DX: F41.9 Anxiety disorder, unspecified (principal); F32.A Depression, unspecified
CPT/HCPCS: 99214

== ENCOUNTER 2023-07-01 11:01 | Outpatient (AMB) | payer OTHER, SELFPAY ==
--- NOTE | 2023-07-01 11:21 | MHC.PC.OV ---
Vital Signs 07/01/23 11:23 Height 5 ft 8 in Weight 294 lb BMI 44.7 BP 124/70 Blood Pressure Location Lt brachial Position Sitting Respiration 13 Pulse 75 Pulse Source Pulse Oximeter Temp 97.8 F Temp Source Temporal Artery Scan Pulse Oximetry (%) 99 Oxygen Delivery Method Room Air Intake Visit Reasons: 2 weeks anxiety, depression Intake Note: Patient states that anxiety and depression are still bad. Patient states that the pain in his right shoulder has gotten worse and has been keeping him up at night. Multi Slide Machine Tender Required: No Accompanied by: Self / Same As Patient Allergies ibuprofen Adverse Reaction (Severe, Uncoded 07/01/23 11:33) affects kidneys. Medication List - Last Reconciled 07/01/23 by Trae Mcfarlane CNP albuterol sulfate 90 mcg/actuation (Ventolin HFA) 2 puffs inhalation Q4-6H PRN blood sugar diagnostic (OneTouch Ultra Test strips) As directed TID blood-glucose meter (OneTouch Ultra2 Meter) As directed dulaglutide (Trulicity) 3 mg subcut QWEEK gabapentin 300 mg PO BEDTIME 30 days insulin glargine U-300 conc (Toujeo Max U-300 SoloStar) 34 units subcut DAILY lancets (OneTouch UltraSoft 2 Lancet) As directed TID lancets As directed metformin 1,000 mg PO BID 30 days nystatin 1 appl topical QID 14 days venlafaxine ER 75 mg PO DAILY 30 days Tobacco use date assessed: 06/16/23 Dental Screening Dental Screen Date: 07/01/23 Did you have a dental visit in the last 12 months?: Yes Did you have a dental problem in the last 6 months where you did not have access to dental care?: No Was dental information given to patient?: Patient has dentist HPI HPI Comments History of Present Illness Details 52-year-old male presents for anxiety and depression follow-up. He was last evaluated for anxiety and depression 2 weeks ago. He reported increased anxiety and depression symptoms that were refractory to sertraline. Sertraline was discontinued and venlafaxine was prescribed. He was encouraged to follow-up in 2 weeks. He notes that his anxiety and depression symptoms have not improved. He states that the pain in his right shoulder has worsened and keeps him awake at night. He has been taking Tylenol 650 mg as needed. He states that his depression, anxiety, and pain symptoms symptoms makes him him irritable at home and work. He notes that he has been taking venlafaxine for 1 week; he did not have money to pick it up earlier. He states that he has been walking at least 3-4 miles daily and helps him relax. He states that he has not been contacted to schedule an MRI. He does not have a follow up appointment scheduled with pain management. He has a positive response to the PHQ-9 question regarding ?Thoughts that you would be better off or of hurting yourself in some way. He notes that sometimes he thinks that his family will be better without him being around. He notes that he does not appreciate being irritable towards his children. He denies SI/HI, denies plans of committing suicide, and contracts for safety. He was seen by [facility] endocrinology last month, his A1c was 10.0%. He states that he has a follow-up in August. [facility] Medical History (Updated 07/01/23 @ 12:15 by Trae Mcfarlane CNP) Postlaminectomy syndrome, lumbar region Lumbar radiculopathy Morbid obesity with BMI of 40.0-44.9, adult Asthma Incontinence of urine Incontinence of feces Swelling of right foot Swelling of left foot Arthritis Sciatica Back pain with history of spinal surgery Back pain Diabetes Surgical History No pertinent past surgical history Family History Mother Heart attack Status post double vessel coronary artery bypass Von Willebrand disease Father Diabetes High blood pressure High cholesterol Maternal Grandfather Alzheimer disease Maternal Grandmother Alzheimer disease Paternal Grandfather Alzheimer disease Paternal Grandmother Alzheimer disease Social History Household Members: Family Housing: Apartment Alcohol intake: former Patient Tobacco Use Status: Never used Tobacco e-Cigarette/Vaping Use: Never Used service: No Current occupational status: employed 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 1. Little interest or pleasure in doing things: nearly every day 2. Feeling down, depressed, or hopeless: nearly every day 3. Trouble falling or staying asleep, or sleeping too much: nearly every day 4. Feeling tired or having little energy: nearly every day 5. Poor appetite or overeating: nearly every day 6. Feeling bad about yourself - or that you are a failure or have let yourself or your family down: nearly every day 7. Trouble concentrating on things, such as reading the newspaper or watching television: more than half the days 8. Moving or speaking so slowly that other people could have noticed. Or the opposite - being so fidgety or restless that you have been moving around a lot more than usual: several days 9. Thoughts that you would be better off or of hurting yourself in some way: several days Total score: 22 Depression Screening Interpretation: Positive Depression Screening Follow-up: Existing condition, In treatment and Change in Medication Depression Screening Done: Yes Source: Developed by Drs. Daniel Tam, Delphine Stahl, Alberto Hu and colleagues, with an educational denise from [employer]. LEILANI-7 AMB Questionnaire LEILANI-7 Date LEILANI - 7 assessed: 07/01/23 Feeling nervous, anxious, or on edge: 3 = Nearly every day Not being able to stop or control worryin = Nearly every day Worrying too much about different things: 3 = Nearly every day Trouble relaxin = Nearly every day Being so restless that it is hard to sit still: 2 = More than half the days Becoming easily annoyed or irritable: 3 = Nearly every day Feeling afraid as if something awful might happen: 1 = Several days Total LEILANI-7 score (0-4 normal; 5-9 mild; 10-14 moderate; 15-21 severe): 18 Source: Developed by Drs. Daniel Tam, Alberto Lucio and colleagues, with an educational denise from [employer]. Review of Systems Const Details: Const Denies chills, Denies fatigue, Denies fever(s), Denies headache(s) and Denies weakness ENT Denies dizziness and Denies headache(s) Card Denies chest pain, Denies lightheadedness, Denies dyspnea and Denies other (Palpitations) Resp Denies cough, Denies dyspnea, Denies wheezing and Denies other ( shortness of breath) GI Denies abdominal pain, Denies melena, Denies hematochezia, Denies change in bowel habits, Denies dyspepsia and Denies nausea Denies hematuria and Denies dysuria Musc Reports right shoulder pain, Denies abnormal gait, Denies numbness and Denies tingling Skin/Breast Denies rash, Denies unusual bruising and Denies wounds Neuro Denies abnormal gait, Denies dizziness, Denies headache(s), Denies memory loss, Denies numbness, Denies Sensory deficit (Neuro), Denies tingling and Denies weakness Psych Reports anxiety, Reports depression, Denies memory loss Endo Denies cold intolerance, Denies fatigue, Denies heat intolerance, Denies polydipsia and Denies polyuria Aller/Immun Denies wheezing Physical exam (Primary Care) Vital Signs: Last Vital Signs Temp 97.8 F 07/01/23 11:23 Pulse 75 07/01/23 11:23 Resp 13 07/01/23 11:23 BP 124/70 07/01/23 11:23 Pulse Ox 99 07/01/23 11:23 Oxygen Delivery Method Room Air 07/01/23 11:23 BMI result Body Mass Index 44.7 Tobacco/Smoking Status: Tobacco use Status Tobacco use date assessed 06/16/23 07/01/23 11:29 Patient Tobacco Use Status Never used Tobacco 07/01/23 11:29 e-Cigarette/Vaping Use Never Used 07/01/23 11:29 Depression Screening Interpretation: Positive Depression Screening Follow-up: Existing condition, In treatment and Change in Medication Const Other: General: no acute distress and well developed Nutritional Appearance: well nourished Orientation/consciousness: patient oriented x3 [facility] Head: Yes normocephalic and Yes atraumatic Eyes General: appearance normal, both eyes and all related structures Pupils: Equal, round and reactive pupils present EOM: EOMs intact bilaterally Resp Effort & Inspection: normal respiratory effort Auscultation: clear to auscultation bilaterally Cardio Rate: regular rate Rhythm: regular rhythm Heart sounds: S1 normal heart sound present, S2 normal heart sound present, no gallops, no murmurs and no rubs GI Palpation (GI): No Abdominal aortic bruit present, Soft to palpation, nontender, No hepatosplenomegaly present and No Rebound tenderness present Auscultation: normal bowel sounds General: Yes no CVA tenderness Back/Spine/Pelvis Back: no CVA tenderness Cervical Spine: cervical ROM normal and No Cervical spine tenderness Thoracic/Lumbar Spine: thoraco-lumbar ROM normal, No pain with thoraco-lumbar ROM, No thoracic spinal tenderness and No lumbar spinal tenderness Extrem General: Yes normal to inspection, No edema and No calf tenderness Skin General: warm and dry. Normal skin color. Normal skin turgor Lesions: no lesions Rashes: no rashes Trauma: no lacerations or abrasions Wounds: no wounds Nails: normal Neuro General: patient oriented x3, gait normal and no focal neuro deficit Cranial nerves: Yes Equal, round and reactive pupils present Cognition (Neuro): normal cognition Gait exam (Neuro): Normal gait present Sensory Exam: No Sensory deficit (Neuro) Psych Appearance: grossly normal Affect: normal affect Attitude: cooperative Thought process: Normal thought process present Assessment and Plan Assessment & Plan (1) Anxiety and depression: Code(s): F41.9 - Anxiety disorder, unspecified; F32.A - Depression, unspecified Plan: Reports worsening anxiety and depression with no response to venlafaxine which he started taking a week ago He also reports right shoulder pain which interferes with his mood Will increase venlafaxine to 150 mg daily. Take as prescribed Will also increase gabapentin to 300 mg twice daily. Take as prescribed Continue to take Tylenol as needed for pain or discomfort Warm/cool compresses encouraged He met with the community navigator and inform him that he was contacted by the pediatric neuropsychologist whom he was referred to. He was informed that his health plan was not accepted. The community navigator will work with the patient for not referral and also for a better health plan Advised to call and schedule an appointment for an MRI and schedule a follow-up appointment with pain management Follow-up for anxiety and depression in 2 weeks or return sooner with worsening or new symptoms Verbalized understanding and agreed with treatment plan. (2) Right shoulder pain: Code(s): M25.511 - Pain in right shoulder Plan: As above Medications: Changed From gabapentin 300 mg PO BEDTIME 30 days 30 caps 1RF To gabapentin 300 mg PO BID 30 days 60 caps 1RF From venlafaxine ER 75 mg PO DAILY 30 days 30 caps 3RF To venlafaxine ER 150 mg (2 x 75 mg) PO DAILY 30 days 60 caps 3RF Coding Level of Care Code Est Pt Level 4 (04397) Diagnoses Anxiety and depression F41.9; F32.A Right shoulder pain M25.511
[2023-07-01 11:23] VITALS: BP 124/70; PULSE 75; RESP 13; TEMP 36.6; O2SAT 99; BMI 44.7
== END 2023-07-01 13:54 | disposition home or self-care (01) ==
PROVIDERS: PCP Nurse Practitioner Family; Visit Provider Nurse Practitioner Family
DX: F41.9 Anxiety disorder, unspecified (principal); F32.A Depression, unspecified; M25.511 Pain in right shoulder
CPT/HCPCS: 83036; 99214

== ENCOUNTER 2023-08-12 10:34 | Outpatient (AMB) | payer OTHER, SELFPAY ==
--- NOTE | 2023-08-12 10:56 | A.OFFPC_ITS ---
Vital Signs 08/12/23 10:58 08/12/23 11:56 Height 5 ft 8 in Weight 293 lb 4 oz BMI 44.6 BP 148/90 H 140/90 H Blood Pressure Location Rt brachial Lt brachial Position Sitting Sitting Respiration 13 Pulse 72 Pulse Source Pulse Oximeter Temp 97.5 F Temp Source Temporal Artery Scan Pulse Oximetry (%) 99 Oxygen Delivery Method Room Air Intake Visit Reasons: 2 week follow up anxiety depression+NEEDS A1C Intake Note: Patient states that hes been experiencing nausea, headaches, bodyaches, fatigue, and congestion with occasional runny nose. Powder Operator Required: No Accompanied by: Self / Same As Patient Allergies ibuprofen Adverse Reaction (Severe, Uncoded 08/12/23 11:34) affects kidneys. Medication List - Last Reconciled 08/12/23 by Trae Mcfarlane CNP albuterol sulfate 90 mcg/actuation (Ventolin HFA) 2 puffs inhalation Q4-6H PRN blood sugar diagnostic (OneTouch Ultra Test strips) As directed TID blood-glucose meter (WaveMaker LabsTouch Ultra2 Meter) As directed dulaglutide (Trulicity) 3 mg subcut QWEEK gabapentin 300 mg PO BID 30 days insulin glargine U-300 conc (Toujeo Max U-300 SoloStar) 34 units subcut DAILY lancets (WaveMaker LabsTouch UltraSoft 2 Lancet) As directed TID lancets As directed metformin 1,000 mg PO BID 30 days miscellaneous medical supply One pair diabetic shoes nystatin 1 appl topical QID 14 days venlafaxine ER 150 mg (2 x 75 mg) PO DAILY 30 days Tobacco use date assessed: 06/16/23 Dental Screening Dental Screen Date: 08/12/23 Did you have a dental visit in the last 12 months?: Yes Did you have a dental problem in the last 6 months where you did not have access to dental care?: No Was dental information given to patient?: Patient has dentist HPI HPI Comments History of Present Illness Details 52-year-old male presents for anxiety an d depression follow-up He admits to taking his medications as prescribed without adverse reactions. He reports significant improvement of his symptoms on Venlafaxine. He notes that he feels more anxious than depressed. He was referred to a therapist/psychiatrist and his last office visit. However, he notes his phone was off for several off but not has a working phone He reports nausea, headaches, body aches, fatigue, nasal congestion and runny nose. He also reports GI upset and diarrhea for the past 3 days. His symptoms have been ongoing for the past 4 days. No fever. No sick contacts. PeptoBismol has not been providing relief. He notes he established with Endocrinology at [facility] in June 04. His A1c was 10%. He was advised to continue metformin 1000 mg twice daily. Trulicity was increased to 3 mg once weekly. Lantus was increased to 34 units daily in the a.m. He was prescribed humalog sliding scale 3 times daily before meals. He states that he missed his recent appointment He notes that he has been walking more for exercise [facility] Medical History Postlaminectomy syndrome, lumbar region Lumbar radiculopathy Morbid obesity with BMI of 40.0-44.9, adult Asthma Incontinence of urine Incontinence of feces Swelling of right foot Swelling of left foot Arthritis Sciatica Back pain with history of spinal surgery Back pain Diabetes Surgical History No pertinent past surgical history Family History Mother Heart attack Status post double vessel coronary artery bypass Von Willebrand disease Father Diabetes High blood pressure High cholesterol Maternal Grandfather Alzheimer disease Maternal Grandmother Alzheimer disease Paternal Grandfather Alzheimer disease Paternal Grandmother Alzheimer disease Social History Household Members: Family Housing: Apartment Alcohol intake: former Patient Tobacco Use Status: Never used Tobacco e-Cigarette/Vaping Use: Never Used service: No Current occupational status: employed 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 1. Little interest or pleasure in doing things: not at all 2. Feeling down, depressed, or hopeless: several days 3. Trouble falling or staying asleep, or sleeping too much: nearly every day (Staying asleep) 4. Feeling tired or having little energy: nearly every day 5. Poor appetite or overeating: nearly every day 6. Feeling bad about yourself - or that you are a failure or have let yourself or your family down: not at all 7. Trouble concentrating on things, such as reading the newspaper or watching television: several days 8. Moving or speaking so slowly that other people could have noticed. Or the opposite - being so fidgety or restless that you have been moving around a lot more than usual: several days 9. Thoughts that you would be better off or of hurting yourself in some way: several days Total score: 13 Depression Screening Interpretation: Positive Depression Screening Done: Yes 85218 - PHQ-9 Billing: Yes Source: Developed by Drs. Daniel Tam, Delphine Stahl, Alberto Hu and colleagues, with an educational denise from [employer]. LEILANI-7 AMB Questionnaire LEILANI-7 Date LEILANI - 7 assessed: 08/12/23 Feeling nervous, anxious, or on edge: 3 = Nearly every day Not being able to stop or control worryin = Several days Worrying too much about different things: 1 = Several days Trouble relaxin = Nearly every day Being so restless that it is hard to sit still: 1 = Several days Becoming easily annoyed or irritable: 1 = Several days Feeling afraid as if something awful might happen: 0 = Not at all Total LEILANI-7 score (0-4 normal; 5-9 mild; 10-14 moderate; 15-21 severe): 10 Source: Developed by Drs. Daniel Tam, Delphine Stahl, Alberto Hu and colleagues, with an educational denise from [employer]. Physical exam (Primary Care) Vital Signs: Last Vital Signs Temp 97.5 F 08/12/23 10:58 Pulse 72 08/12/23 10:58 Resp 13 08/12/23 10:58 BP 148/90 H 08/12/23 10:58 Pulse Ox 99 08/12/23 10:58 Oxygen Delivery Method Room Air 08/12/23 10:58 BMI result Body Mass Index 44.6 Tobacco/Smoking Status: Tobacco use Status Tobacco use date assessed 06/16/23 08/12/23 10:58 Patient Tobacco Use Status Never used Tobacco 08/12/23 10:58 e-Cigarette/Vaping Use Never Used 08/12/23 10:58 PHQ-9: PHQ-9 Score PHQ-9: Total score 13 08/12/23 11:11 Depression Screening Interpretation: Positive Results AMB Hemoglobin A1c AMB Hemoglobin A1c 9.2 % Last Edit by Maame Anderson MA on 08/12/23 11:33 Results Reviewed Results Reviewed: Laboratory Last Values Hgb A1c (Clinic) 9.2 % (4.0-6.0) H 08/12/23 11:32 Assessment and Plan Assessment & Plan (1) Anxiety and depression: Code(s): F41.9 - Anxiety disorder, unspecified; F32.A - Depression, unspecified Plan: Reports significant improvement of his symptoms on Venlafaxine. He notes that he feels more anxious than depressed. He was referred to a therapist/psychiatrist and his last office visit. However, he notes his phone was off for several off but not has a working phone PHQ-9 and LEILANI-7 scores revealed moderate depression and anxiety Bupropion ordered. Take as prescribed Routine exercise encouraged He met with the community navigator who would place a new referral to a therapist or psychiatrist Follow-up in 1 month or return sooner with new or worsening symptoms Verbalized understanding and agreed with treatment plan (2) Viral illness: Code(s): B34.9 - Viral infection, unspecified Plan: Likely viral illness No exam evidence of bacterial infection Viral illness There is no antibiotic medication for viruses.? They must run their course.? Most average 5-7 days but 7-10 days is not uncommon and up to 14 days is still possible.? A cough is often the last symptom to resolve and this can last for weeks in some cases. Rest Hydrate well -? Drink plenty of fluids.? Especially water. Tylenol or ibuprofen for muscle aches, headache, fever/discomfort May take Metamucil to bulk stool and slow down diarrhea Cannot rule out COVID-19/RSV/Flu infection Nasal swab acquired and will be sent to the lab Return or go to the ED for new or worsening symptoms Verbalized understanding and agreed with treatment plan. (3) Elevated blood pressure reading without diagnosis of hypertension: Code(s): R03.0 - Elevated blood-pressure reading, without diagnosis of hypertension Plan: Resting blood pressure is 140/90, above goal of less than 130/80 He admits to avoiding sodium in his diet Low-sodium diet encouraged Will continue to monitor Follow-up in 1 month Verbalized understanding and agreed with treatment plan (4) Diabetes: Code(s): E11.9 - Type 2 diabetes mellitus without complications Plan: He is followed by [facility] endocrinology His last visit was in May. A1c was 10%. He was advised to continue metformin 1000 mg twice daily. Trulicity was increased to 3 mg once weekly. Lantus was increased to 34 units daily in the a.m. He was prescribed humalog sliding scale 3 times daily before meals He missed his recent appointment with endocrinology A1c today is 9.2%, above goal of less than 7.0% Continue with current treatment regimen ADA diet and routine exercise encouraged Follow-up with endocrinology as planned Return with symptoms or concerns Verbalized understanding and agreed with treatment plan Orders: Orders SARS-CoV2/FLU/RSV Today B34.9 - Viral infection, unspecified AMB Hemoglobin A1c Today Z13.9 - Encounter for screening, unspecified Medications: New buspirone 7.5 mg PO BID 60 tabs 3RF 30 days Coding Level of Care Code Est Pt Level 4 (87758) Diagnoses Anxiety and depression F41.9; F32.A Viral illness B34.9 Elevated blood pressure reading without diagnosis of hypertension R03.0 Diabetes E11.9
[2023-08-12 10:58] VITALS: BP 148/90; PULSE 72; RESP 13; TEMP 36.4; O2SAT 99; BMI 44.6
[2023-08-12 11:56] VITALS: BP 140/90
== END 2023-08-12 12:34 | disposition home or self-care (01) ==
PROVIDERS: PCP Nurse Practitioner Family; Visit Provider Nurse Practitioner Family
DX: E11.9 Type 2 diabetes mellitus without complications (principal); F41.9 Anxiety disorder, unspecified; F32.A Depression, unspecified; B34.9 Viral infection, unspecified; R03.0 Elevated blood-pressure reading, without diagnosis of hypertension
CPT/HCPCS: 99214

== ENCOUNTER 2023-08-12 12:00 | Outpatient (REF) | payer OTHER, SELFPAY ==
[2023-08-12 15:50] LABS: Influenza A PCR NEGATIVE (Negative); Influenza B PCR NEGATIVE (Negative); Resp Syncy Virus RNA Qual PCR NEGATIVE (Negative); SARS COV2 PCR INHOUSE NEGATIVE (Negative)
== END 2023-08-12 12:01 | disposition home or self-care (01) ==
LOC: HO.LAB 12:00
PROVIDERS: Visit Provider Nurse Practitioner Family
DX: Z20.822 Contact with and (suspected) exposure to COVID-19 (principal)
CPT/HCPCS: 0241U

== ENCOUNTER 2024-08-06 12:02 | Outpatient (AMB) | payer OTHER, SELFPAY ==
--- NOTE | 2024-08-06 12:05 | A.OFFPC_ITS ---
Vital Signs 08/06/24 12:11 Height 5 ft 8 in Weight 262 lb 6 oz BMI 39.9 BP 115/74 Blood Pressure Location Rt brachial Position Sitting Respiration 16 Pulse 68 Pulse Source Pulse Oximeter Temp 97.7 F Temp Source Oral Pulse Oximetry (%) 99 Oxygen Delivery Method Room Air Intake Visit Reasons: [facility] due to a rash and cellulites Intake Note: patient here for follow up on hospital discharge due to rash and cellulites Mixing Technician Required: No Allergies ibuprofen Adverse Reaction (Severe, Uncoded 08/12/23 11:34) affects kidneys. Tobacco use date assessed: 08/06/24 Dental Screening Dental Screen Date: 08/06/24 Did you have a dental visit in the last 12 months?: Yes Did you have a dental problem in the last 6 months where you did not have access to dental care?: No Was dental information given to patient?: Patient has dentist HPI HPI Comments History of Present Illness Details The patient is a 53-year-old male presenting with cellulitis. I nitially, the patient experienced redness and pain in both groin areas that began approximately one week prior to his admission on July 29, 2024. The symptoms intensified two days before he decided to seek emergency care, presenting with pain and swelling. The patient's vital signs in the emergency department were stable, with a temperature of 98.2?F and blood pressure of 116/[address] scan of the abdomen and pelvis was performed to rule out deep infection, with unremarkable results. He was treated with intravenous vancomycin and later transitioned to oral antibiotics for a seven-day course. The patient noted improvement and was discharged stable. However, he presented to the emergency department again on August 03, 2024, with pain in the occipital region, diagnosed as cellulitis. A bedside ultrasound revealed no significant fluid collection, and an incision was made to drain scant serosanguinous fluid, which was sent for culture. He was advised to continue with his antibiotic regimen, including Keflex and Bactrim DS. The patient reports improvement in his groin cellulitis but continues to experience symptoms and is currently using a lotion he received, which he is now out of. Additionally, elevated blood sugars have been noted, with recent readings exceeding 600 mg/dL. Medications include metformin, long-acting insulin, and previously prescribed Trulicity, which he h as not taken lately due to a lack of refills. He noted to that he was also discharged with ketoconazole cream to apply to rash on his lower abdomen, and bilateral groins and upper thigh; he has been applying the cream with significant improvement. Social History - The patient engages in regular physica Allani activity, walking approximately three hours daily with the aid of a cane. - Recent significant weight loss, decrea sing from 310 pounds in September to 262 pounds currently. - The patient is making healthier dietar y choices, though no specific details were provided. - The patient reports difficulty in celine ging his diabetes due to lack of transport for endocrinology visits until recently. Results - Labs: - A1c >14% [facility] Medical History Postlaminectomy syndrome, lumbar region Lumbar radiculopathy Morbid obesity with BMI of 40.0-44.9, adult Asthma Incontinence of urine Incontinence of feces Swelling of right foot Swelling of left foot Arthritis Sciatica Back pain with history of spinal surgery Back pain Diabetes Surgical History No pertinent past surgical history Family History Mother Heart attack Status post double vessel coronary artery bypass Von Willebrand disease Father Diabetes High blood pressure High cholesterol Maternal Grandfather Alzheimer disease Maternal Grandmother Alzheimer disease Paternal Grandfather Alzheimer disease Paternal Grandmother Alzheimer disease Social History Household Members: Family Housing: Apartment Alcohol intake: former Patient Tobacco Use Status: Never used Tobacco e-Cigarette/Vaping Use: Never Used service: No Current occupational status: employed 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 Daniel Tam, Delphine Stahl, Alberto Hu and colleagues, with an educational denise from [employer]. Review of Systems Const Details: Const Reports chills but occasionally both day and night, Denies fatigue, Denies fever(s), Denies headache(s) and Denies weakness ENT Denies dizziness and Denies headache(s) Card Denies chest pain, Denies lightheadedness, Denies dyspnea and Denies other (Palpitations) Resp Denies cough, Denies dyspnea, Denies wheezing and Denies other ( shortness of breath) GI Denies abdominal pain, Denies melena, Denies hematochezia, Denies change in bowel habits, Denies dyspepsia and Denies nausea Denies hematuria and Denies dysuria Musc Denies abnormal gait, Denies myalgias, Denies arthralgias, Denies numbness and Denies tingling Skin/Breast Reports itching and burning in the groin and upper thighs, Reports persistent pain to lesion to left posterior occipital region Neuro Denies abnormal gait, Denies dizziness, Denies headache(s), Denies memory loss, Denies numbness, Denies Sensory deficit (Neuro), Denies tingling and Denies weakness Psych Denies anxiety, Denies depression, Denies memory loss Endo Reports high blood sugar readings, with fasting levels between 450-510 mg/dL, Denies cold intolerance, Denies fatigue, Denies heat intolerance, Denies polydipsia and Denies polyuria Aller/Immun Denies wheezing Physical exam (Primary Care) Vital Signs: Last Vital Signs Temp 97.7 F 08/06/24 12:11 Pulse 68 08/06/24 12:11 Resp 16 08/06/24 12:11 BP 115/74 08/06/24 12:11 Pulse Ox 99 08/06/24 12:11 Oxygen Delivery Method Room Air 08/06/24 12:11 BMI result Body Mass Index 39.9 Tobacco/Smoking Status: Tobacco use Status Tobacco use date assessed 08/06/24 08/06/24 12:15 Patient Tobacco Use Status Never used Tobacco 08/06/24 12:07 e-Cigarette/Vaping Use Never Used 08/06/24 12:07 Const Other: General: no acute distress and well developed Nutritional Appearance: well nourished Orientation/consciousness: patient oriented x3 HENMT Head: Yes normocephalic and Yes atraumatic Eyes General: appearance normal, both eyes and all related structures Pupils: Equal, round and reactive pupils present EOM: EOMs intact bilaterally Resp Effort & Inspection: normal respiratory effort Auscultation: clear to auscultation bilaterally Cardio Rate: regular rate Rhythm: regular rhythm Heart sounds: S1 normal heart sound present, S2 normal heart sound present, no gallops, no murmurs and no rubs GI Palpation (GI): No Abdominal aortic bruit present, Soft to palpation, nontender, No hepatosplenomegaly present and No Rebound tenderness present Auscultation: normal bowel sounds General: Yes no CVA tenderness Back/Spine/Pelvis Back: no CVA tenderness Cervical Spine: cervical ROM normal and No Cervical spine tenderness Thoracic/Lumbar Spine: thoraco-lumbar ROM normal, No pain with thoraco-lumbar ROM, No thoracic spinal tenderness and No lumbar spinal tenderness Extrem General: Yes normal to inspection, No edema and No calf tenderness Skin General: warm and dry. Normal skin color. Normal skin turgor Lesions: Lesion to left occipital region appears scabbed with no evidence of drainage or infection Rashes: Lower abdomen, upper thigh, groin, and scrotum non-raised patches with minimal rednesss, consistent with candidiasis Trauma: no lacerations or abrasions Wounds: no wounds Nails: normal Neuro General: patient oriented x3, gait normal and no focal neuro deficit Cranial nerves: Yes Equal, round and reactive pupils present Cognition (Neuro): normal cognition Gait exam (Neuro): Normal gait present Sensory Exam: No Sensory deficit (Neuro) Psych Appearance: grossly normal Affect: normal affect Attitude: cooperative Thought process: Normal thought process present Results AMB Hemoglobin A1c AMB Hemoglobin A1c 14.0 % Last Edit by Liliane Ruiz on 08/06/24 13:33 Results Reviewed Results Reviewed: Laboratory Last Values Hgb A1c (Clinic) 14.0 % (4.0-6.0) H 08/06/24 13:01 Coding Level of Care Code Est Pt Level 4 (08458) Complex EM visit Add On G2211 Diagnoses Cellulitis, perineum L03.315 Uncontrolled type 2 diabetes mellitus with hyperglycemia E11.65 Asthma J45.909 Scalp lesion L98.9 Laboratory tests ordered as part of a complete physical exam (CPE) Z00.00 Assessment & Plan Assessment & Plan (1) Cellulitis, perineum: Code(s): L03.315 - Cellulitis of perineum Category: Medical Plan: Continue current antibiotic therapy with Keflex four times daily and Bactrim DS as prescribed. Monitor the response to treatment and evaluate further if symptoms persist or worsen. Will refill ketoconazole cream. (2) Uncontrolled type 2 diabetes mellitus with hyperglycemia: Code(s): E11.65 - Type 2 diabetes mellitus with hyperglycemia Category: Medical Plan: Increase insulin Glargine dose to 40 units daily. Refill Trulicity 0.75 mg weekly. Continue metformin 1000 mg twice daily and use Novolog per sliding scale. The patient needs to improve glycemic control and should follow up directly with his mine exploration engineer as soon as possible. (3) Asthma: Code(s): J45.909 - Unspecified asthma, uncomplicated Category: Medical Plan: Refill Ventolin rescue inhaler. Ensure the patient has appropriate asthma action plans in place. (4) Scalp lesion: Code(s): L98.9 - Disorder of the skin and subcutaneous tissue, unspecified Category: Medical Plan: Lesion to left occipital region appears scabbed with no evidence of drainage or infection. Continue current antibiotic therapy with Keflex four times daily and Bactrim DS as prescribed. Monitor the response to treatment and evaluate further if symptoms persist or worsen. (5) Laboratory tests ordered as part of a complete physical exam (CPE): Code(s): Z00.00 - Encounter for general adult medical examination without abnormal findings Category: Medical Plan: Fasting labs ordered as part of a complete physical exam. Advised to fast for at least 10 hours before getting labs drawn. May drink water Verbalized understanding and agreed with treatment plan. Plan I discussed with the patient the importance of adhering to the prescribed antibiotic regimen to fully resolve the infected areas of cellulitis. We stressed the critical need for glycemic control to prevent recurrence or other infections, considering his recent hospitalizations were partly attributed to uncontrolled diabetes. The escalation of his insulin dose and reconnection with his mine exploration engineer was advised to optimize diabetes management. Additionally, I discussed asthma management, provided a refill for his inhaler, and encouraged ongoing monitoring of symptoms and blood glucose. We reviewed lifestyle modifications, including dietary choices and maintaining physical activity, and emphasized their role in managing weight and overall health. Follow-up with endocrinology is a priority, and the patient should monitor and log blood sugar readings, ideally seeing the mine exploration engineer within the month. Orders: Orders AMB Hemoglobin A1c 08/06/24 Z13.9 - Encounter for screening, unspecified Complete Blood Count Auto Diff 08/06/24 Z00.00 - Encounter for general adult medical examination without abnormal findings TSH reflex Free T4 08/06/24 Z00.00 - Encounter for general adult medical examination without abnormal findings PSA, Ultra Sensitive 08/06/24. - Encounter for general adult medical examination without abnormal findings Comprehensive Lasara. Panel Fast 08/06/24. - Encounter for general adult medical examination without abnormal findings Lipid Panel 08/06/24. - Encounter for general adult medical examination without abnormal findings Microalbumin, Random (w Creat) 08/06/24. - Encounter for general adult medical examination without abnormal findings UA CC w/rflx Micro + Cult 08/06/24 Z00. - Encounter for general adult medical examination without abnormal findings Medications: New dulaglutide (Trulicity) 3 mg (2 mL) subcut QWEEK 2 mL 3RF ketoconazole 2% 1 appl topical BID 30 grams 1RF Changed From insulin glargine U-300 conc (Toujeo Max U-300 SoloStar) 34 units subcut DAILY To insulin glargine U-300 conc (Toujeo Max U-300 SoloStar) 40 units (0.1333 mL) subcut DAILY 3.999 mL 3RF 30 days Refilled albuterol sulfate 90 mcg/actuation (Ventolin HFA) 2 puffs inhalation Q4-6H PRN 8.5 grams 3RF shortness of breath or wheezing Discontinued nystatin apply on affected skin Discontinued Reason: Doctor's Order 1 appl topical QID 14 days 30 grams 1RF B37.2 - Candidiasis of skin and nail Patient Instructions: - Continue taking Keflex and Bactrim DS as prescribed for cellulitis. Apply ketoconazole to lower abdomen, and bilateral groin and upper thigh as prescribed. - Increase insulin dose to 40 units daily and continue using Novolog as per sliding scale. - Contact the mine exploration engineer to schedule an appointment. - Refill and use the asthma inhaler as needed. - Monitor blood glucose levels daily and maintain a log of readings for review. - Seek medical attention if symptoms of infection do not improve or worsen. - Follow a balanced diet, reduce carbohydrate intake, and maintain physical activity. Patient was informed and verbally consented to the use of an ambient scribe for clinic note documentation during this visit.
[2024-08-06 12:11] VITALS: BP 115/74; PULSE 68; RESP 16; TEMP 36.5; O2SAT 99; BMI 39.9
== END 2024-08-06 13:25 | disposition home or self-care (01) ==
PROVIDERS: PCP Nurse Practitioner Family; Visit Provider Nurse Practitioner Family
DX: L03.315 Cellulitis of perineum (principal); E11.65 Type 2 diabetes mellitus with hyperglycemia; J45.909 Unspecified asthma, uncomplicated; L98.9 Disorder of the skin and subcutaneous tissue, unspecified; Z00.00 Encounter for general adult medical examination without abnormal findings

== ENCOUNTER → 2024-08-06 12:02 | Outpatient (BNVA) | payer OTHER, SELFPAY | PROVIDERS: PCP Nurse Practitioner Family; Visit Provider Nurse Practitioner Family | DX: E11.65 Type 2 diabetes mellitus with hyperglycemia (principal); L03.315 Cellulitis of perineum; J45.909 Unspecified asthma, uncomplicated; L98.9 Disorder of the skin and subcutaneous tissue, unspecified | CPT/HCPCS: 83036; 99212 ==

== ENCOUNTER 2024-09-13 10:31 | Outpatient (REF) | payer MEDICARE, SELFPAY ==
[2024-09-13 14:03] LABS: MANUAL DIFF FLAG NO
[2024-09-13 14:10] LABS: Basophils Percent Auto 0.6 % (0-2); Eosinophils Absolute Auto 0.1 X10*3/uL (0.0-0.4); Eosinophils Percent Auto 1.1 % (0-4); Hematocrit 52.7 % (42.0-52.0); Hemoglobin 16.9 g/dl (14.0-18.0); Imm Gran Abs Auto 0.01 X10*3/uL (0.00-0.03); Imm Gran Pct Auto 0.2 % (0.0-0.4); Lymphocytes Percent Auto 36.4 % (20-40); Mean Corpuscular HGB Conc 32.1 g/dl (31.0-36.0); Mean Corpuscular Hemoglobin 27.4 pg (27.0-33.0); Mean Corpuscular Volume 85.4 fL (80.0-98.0); Mean Platelet Volume 10.7 fL (9.4-12.4); Monocytes Absolute Auto 0.4 X10*3/uL (0.1-1.2); Monocytes Percent Auto 7.3 % (2-11); Neutrophils Absolute Auto 2.9 x10*3/uL (2.0-8.3); Neutrophils Percent Auto 54.4 % (45-73); Platelet Count 249 X10*3/uL (160-400); Red Blood Count 6.17 X10*6/uL (4.60-5.80); Red Cell Distribution Width 13.2 % (11.0-16.0); White Blood Count 5.4 X10*3/uL (4.8-10.8)
[2024-09-13 14:14] LABS: Appearance Urine Clear; Color Urine Yellow; Glucose Urine UA >=1000 mg/dL (Negative); Leukocyte Esterase Urine Negative (Negative); Nitrite Urine Negative (Negative); PH 5.5 (5.0-9.0); Specific Gravity - Urine >= 1.030 (1.005-1.025); UMIC TRIGGER UACC YES; Urine Blood Negative (Negative); Urine Ketones Trace mg/dL (Negative); Urine Protein Negative (Neg-Trace)
[2024-09-13 14:18] LABS: Bacteria Urine None Seen (None Seen); Hyaline Casts Urine 0-2 /LPF (0-2); RBC Urine 0-2 /HPF (0-2); Squamous Epithelial Cell Urine 0-2 /HPF (0-2); WBC Urine 0-5 /HPF (0-5)
[2024-09-13 14:27] LABS: Alanine Aminotransferase 36 U/L (0-40); Albumin Level 3.8 g/dL (3.5-5.0); Alkaline Phosphatase 175 U/L (39-117); Anion Gap 10 (12-20); Aspartate Amino Transferase 26 U/L (5-37); Bilirubin Total 0.7 mg/dL (0.0-1.0); Blood Urea Nitrogen 14 mg/dL (9-16); Calcium 9.4 mg/dL (8.4-10.2); Carbon Dioxide 26 mmol/L (22-29); Chloride 105 mmol/L (96-108); Cholesterol 185 mg/dL (<200); Estimated Glomerular Filt Rate > 60; Glucose Fasting 348 mg/dL (60-99); HDL Cholesterol 36 mg/dL (>40); LDL Cholesterol Calculated 115 mg/dL (<100); Potassium 4.2 mmol/L (3.3-5.1); Sodium 137 mmol/L (135-145); Total Protein 8.3 g/dL (6.5-8.0); Triglycerides 171 mg/dL (<150)
[2024-09-13 14:32] LABS: Creatinine Urine 94.35 mg/dL; Microalbum/Creatinine Ratio Ur 43.4 ug/mg cr (<30)
[2024-09-13 14:43] LABS: TSH reflex Free T4 0.29 uIU/mL (0.32-4.0)
[2024-09-18 21:44] LABS: PSA, Ultra Sensitive 1.18 ng/mL
== END 2024-09-13 10:32 | disposition home or self-care (01) ==
LOC: HO.WFDLDS 10:31
PROVIDERS: Visit Provider Nurse Practitioner Family
DX: Z00.00 Encounter for general adult medical examination without abnormal findings (principal); Z12.5 Encounter for screening for malignant neoplasm of prostate; E11.65 Type 2 diabetes mellitus with hyperglycemia; F41.9 Anxiety disorder, unspecified; F32.A Depression, unspecified
CPT/HCPCS: 36415; 80053; 80061; 81001; 82043; 82570; 84153; 84439; 84443; 85025; 99212

== ENCOUNTER 2024-09-13 10:50 | Outpatient (AMB) | payer MEDICARE, SELFPAY ==
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
[2024-09-13 11:01] VITALS: BP 142/86; PULSE 78; RESP 16; TEMP 36.6; O2SAT 97; BMI 38.4
[2024-09-13 11:24] VITALS: BP 118/88
== END 2024-09-13 11:20 | disposition home or self-care (01) ==
PROVIDERS: PCP Nurse Practitioner Family; Visit Provider Nurse Practitioner Family
DX: E11.65 Type 2 diabetes mellitus with hyperglycemia (principal); F41.9 Anxiety disorder, unspecified; F32.A Depression, unspecified

== ENCOUNTER 2024-11-01 10:47 | Outpatient (AMB) | payer MEDICARE, SELFPAY ==
--- NOTE | 2024-11-01 10:52 | MHC.PC.OV ---
Vital Signs 11/01/24 10:56 Height 5 ft 8 in Weight 248 lb BMI 37.7 BP 141/84 H Blood Pressure Location Rt brachial Position Sitting Respiration 16 Pulse 77 Pulse Source Pulse Oximeter Temp 97.8 F Temp Source Oral Pulse Oximetry (%) 100 Oxygen Delivery Method Room Air Intake Visit Reasons: Thighs Infection Intake Note: patient here c/o thighs infection Implementation Advisor Required: No Allergies ibuprofen Adverse Reaction (Severe, Uncoded 11/01/24 11:13) affects kidneys. Medication List - Last Reconciled 11/01/24 by Trae Mcfarlane CNP albuterol sulfate 90 mcg/actuation (Ventolin HFA) 2 puffs inhalation Q4-6H PRN blood sugar diagnostic (SelftradeTouch Ultra Test strips) As directed TID blood-glucose meter (OneTouch Ultra2 Meter) As directed buspirone 7.5 mg PO BID 30 days dulaglutide (Trulicity) 3 mg (2 mL) subcut QWEEK gabapentin 300 mg PO BID 30 days insulin glargine U-300 conc (Toujeo Max U-300 SoloStar) 40 units (0.1333 mL) subcut DAILY 30 days ketoconazole 2% 1 appl topical BID lancets As directed lancets (OneTouch UltraSoft 2 Lancet) As directed TID metformin 1,000 mg PO BID 30 days miscellaneous medical supply One pair diabetic shoes venlafaxine 37.5 mg PO DAILY 30 days Tobacco use date assessed: 11/01/24 Dental Screening Dental Screen Date: 11/01/24 Did you have a dental visit in the last 12 months?: Yes Did you have a dental problem in the last 6 months where you did not have access to dental care?: No Was dental information given to patient?: Patient has dentist HPI HPI Comments History of Present Illness Details 54-year-old male presents with complaints of an infection to his upper thigh and bilat groin for the past two days. He notes that the skin to the affected area is red, and hot and tender to touch. He ran out of ketoconazole cream yesterday. He notes that he has been following up with endocrinology for his diabetes as planned. [facility] Medical History Postlaminectomy syndrome, lumbar region Lumbar radiculopathy Morbid obesity with BMI of 40.0-44.9, adult Asthma Incontinence of urine Incontinence of feces Swelling of right foot Swelling of left foot Arthritis Sciatica Back pain with history of spinal surgery Back pain Diabetes Surgical History No pertinent past surgical history Family History Mother Heart attack Status post double vessel coronary artery bypass Von Willebrand disease Father Diabetes High blood pressure High cholesterol Maternal Grandfather Alzheimer disease Maternal Grandmother Alzheimer disease Paternal Grandfather Alzheimer disease Paternal Grandmother Alzheimer disease Social History Household Members: Family Housing: Apartment Alcohol intake: former Patient Tobacco Use Status: Never used Tobacco e-Cigarette/Vaping Use: Never Used Second Hand Smoke Exposure: Yes service: No Current occupational status: employed 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 [employer] Cognitive needs: No Hearing needs: No Vision needs: Yes (Patient states he needs glasses.) Questionnaire Thrive Questionnaire Date Thrive assessed: 09/13/24 I am a: Patient What is your living situation today?: I have a steady place to live Within the past 12 months, did the food you bought not last and you didn't have the money to get more?: Never true Within the past 12 months, did you worry whether your food would run out before you got money to buy more?: Never true Do you have trouble paying for medicines?: Yes Do you have trouble getting transportation to medical appointments?: Yes Do you have trouble paying your heating and electricity bill?: Yes Do you have trouble taking care of your child, family member or friend?: No Do you have trouble with day-to-day activities such as bathing, preparing meals, shopping, managing finances, etc.?: Yes Are you currently unemployed and looking for a job?: No Are you interested in more education?: No Please select the resources that you would like help with: None Currently or been in a relationship where the following occur: No concerns reported THRIVE Score: 2 LEILANI-7 AMB Questionnaire LEILANI-7 Date LEILANI - 7 assessed: 08/12/23 Source: Developed by Drs. Daniel Tam, Delphine B.W. Alberto Stahl and colleagues, with an educational denise from [employer]. Review of Systems Const Details: Const Denies chills, Denies fatigue, Denies fever(s), Denies headache(s) and Denies weakness ENT Denies dizziness and Denies headache(s) Card Denies chest pain, Denies lightheadedness, Denies dyspnea and Denies other (Palpitations) Resp Denies cough, Denies dyspnea, Denies wheezing and Denies other ( shortness of breath) GI Denies abdominal pain, Denies melena, Denies hematochezia, Denies change in bowel habits, Denies dyspepsia and Denies nausea Denies hematuria and Denies dysuria Musc Denies abnormal gait, Denies myalgias, Denies arthralgias, Denies numbness and Denies tingling Skin/Breast Reports as per HPI Neuro Denies abnormal gait, Denies dizziness, Denies headache(s), Denies memory loss, Denies numbness, Denies Sensory deficit (Neuro), Denies tingling and Denies weakness Psych Denies anxiety, Denies depression, Denies memory loss Endo Denies cold intolerance, Denies fatigue, Denies heat intolerance, Denies polydipsia and Denies polyuria Aller/Immun Denies wheezing Physical exam (Primary Care) Vital Signs: Last Vital Signs Temp 97.8 F 11/01/24 10:56 Pulse 77 11/01/24 10:56 Resp 16 11/01/24 10:56 BP 141/84 H 11/01/24 10:56 Pulse Ox 100 11/01/24 10:56 Oxygen Delivery Method Room Air 11/01/24 10:56 BMI result Body Mass Index 37.7 Tobacco/Smoking Status: Tobacco use Status Tobacco use date assessed 11/01/24 11/01/24 10:59 Patient Tobacco Use Status Never used Tobacco 11/01/24 10:53 e-Cigarette/Vaping Use Never Used 11/01/24 10:53 Thrive Assessment: Date of Thrive Assessment Date Thrive assessed 09/13/24 11/01/24 10:53 Currently or been in a relationship where the following occur: No concerns reported Const Other: General: no acute distress and well developed Nutritional Appearance: well nourished Orientation/consciousness: patient oriented x3 HENMT Head: Yes normocephalic and Yes atraumatic Eyes General: appearance normal, both eyes and all related structures Pupils: Equal, round and reactive pupils present EOM: EOMs intact bilaterally Resp Effort & Inspection: normal respiratory effort Auscultation: clear to auscultation bilaterally Cardio Rate: regular rate Rhythm: regular rhythm Heart sounds: S1 normal heart sound present, S2 normal heart sound present, no gallops, no murmurs and no rubs GI Palpation (GI): No Abdominal aortic bruit present, Soft to palpation, nontender, No hepatosplenomegaly present and No Rebound tenderness present Auscultation: normal bowel sounds General: Yes no CVA tenderness Back/Spine/Pelvis Back: no CVA tenderness Cervical Spine: cervical ROM normal and No Cervical spine tenderness Thoracic/Lumbar Spine: thoraco-lumbar ROM normal, No pain with thoraco-lumbar ROM, No thoracic spinal tenderness and No lumbar spinal tenderness Extrem General: Yes normal to inspection, No edema and No calf tenderness Skin General: warm and dry. Normal skin color. Normal skin turgor Lesions: no lesions Rashes: Skin to the scrotum, bilateral groin, and bilateral thigh proximal to the groin with redness, irritation, moisture, and tenderness, consistent with fungal infection Trauma: no lacerations or abrasions Wounds: no wounds Nails: normal Neuro General: patient oriented x3, gait normal and no focal neuro deficit Cranial nerves: Yes Equal, round and reactive pupils present Cognition (Neuro): normal cognition Gait exam (Neuro): Normal gait present Sensory Exam: No Sensory deficit (Neuro) Psych Appearance: grossly normal Affect: normal affect Attitude: cooperative Thought process: Normal thought process present Coding Level of Care Code Est Pt Level 3 (91356) Diagnoses Candidiasis B37.9 Assessment & Plan Assessment & Plan (1) Candidiasis: Code(s): B37.9 - Candidiasis, unspecified Category: Medical Plan: infection to his upper thigh and bilat groin for the past two days. Skin to the scrotum, bilateral groin, and bilateral thigh proximal to the groin with redness, irritation, moisture, and tenderness, consistent with fungal infection. Ketoconazole cream refilled. Advised to keep affected skin clean and dry and apply ketoconazole cream as prescribed. Follow-up for anxiety and depression next month. Return sooner with symptoms or concerns. Verbalized understanding and agreed with treatment plan. Medications: Refilled ketoconazole 2% 1 appl topical BID 30 grams 1RF
[2024-11-01 10:56] VITALS: BP 141/84; PULSE 77; RESP 16; TEMP 36.6; O2SAT 100; BMI 37.7
--- OUTSIDE RECORDS SUMMARY | 2024-11-01 11:56 | XMS_ITS | Clinical Summary ---
Author Organization [facility] Address [address] [place] [address] Care Team Providers Care Ad Setter Name Role Phone Unavailable Primary Care Provider Unavailabl e Social History Tobacco Use Types Packs/Day Years Used Date Smoking Tobacco: Never Assessed Sex and Gender Information Value Date Recorded Sex Assigned at Not on file Legal Sex Male 12:22 AM EST Gender Identity Not on file Sexual Orientation Not on file Plan of Treatment Health Maintenance Due Date Last Done Comments DTaP,Tdap,and Td Vaccines (1 - Tdap) 1989 Hepatitis B Vaccines (1 of 3 - 19+ 3-dose series) 1989 Pneumococcal Vaccine: 50+ Ye ars (1 of 1 - PCV) 2020 Zoster Vaccines (1 of 2) 2020 COVID-19 Vaccine (1 - 2023-2 5 season) 2024 Influenza Vaccine (#1) 2024 HIB Vaccines Aged Out No longer eligi ble based on patient's age to complete this topic HPV Vaccines Aged Out No longer eligi ble based on patient's age to complete this topic Hepatitis A Vaccines Aged Out No long er eligible based on patient's age to complete this topic IPV Vaccines Aged Out No longer eligi ble based on patient's age to complete this topic MMR Vaccines Aged Out No longer eligi ble based on patient's age to complete this topic Meningococcal ACWY Vaccine Aged Out N o longer eligible based on patient's age to complete this topic Meningococcal B Vacine Aged Out No lo nger eligible based on patient's age to complete this topic Pneumococcal Vaccine: Pediat rics (0 to 5 Years) and At-Risk Patients (6 to 64 Years) Aged Out No longer eligible b ased on patient's age to complete this topic RSV Immunization Patients Un wilberto 20 months Aged Out No longer eligible b ased on patient's age to complete this topic Varicella Vaccines Aged Out No longer eligible based on patient's age to complete this topic
== END 2024-11-01 11:21 | disposition home or self-care (01) ==
PROVIDERS: PCP Nurse Practitioner Family; Visit Provider Nurse Practitioner Family
DX: B37.9 Candidiasis, unspecified (principal)

== ENCOUNTER → 2024-11-01 10:47 | Outpatient (BNVA) | payer MEDICARE, SELFPAY | PROVIDERS: PCP Nurse Practitioner Family; Visit Provider Nurse Practitioner Family | DX: B37.9 Candidiasis, unspecified (principal) | CPT/HCPCS: 99212 ==

== ENCOUNTER 2024-12-05 10:30 | Outpatient (AMB) | payer MEDICARE, SELFPAY ==
--- NOTE | 2024-12-05 10:34 | A.OFFPC_ITS ---
Vital Signs 12/05/24 10:39 Height 5 ft 8 in Weight 255 lb BMI 38.8 BP 134/76 Blood Pressure Location Rt brachial Position Sitting Respiration 16 Pulse 74 Pulse Source Pulse Oximeter Temp 97.5 F Temp Source Oral Pulse Oximetry (%) 98 Oxygen Delivery Method Room Air Intake Visit Reasons: Next month, anxiety, depression Intake Note: patient here for follow up on anxiety and depression c/o abdominal pain. Medical Records Auditor Required: No Allergies ibuprofen Adverse Reaction (Severe, Uncoded 12/05/24 10:53) affects kidneys. Medication List - Last Reconciled 12/05/24 by Trae Mcfarlane CNP albuterol sulfate 90 mcg/actuation (Ventolin HFA) 2 puffs inhalation Q4-6H PRN blood sugar diagnostic (OneTouch Ultra Test strips) As directed TID blood-glucose meter (OneTouch Ultra2 Meter) As directed buspirone 7.5 mg PO BID 30 days dulaglutide (Trulicity) 3 mg (2 mL) subcut QWEEK gabapentin 300 mg PO BID 30 days insulin glargine U-300 conc (Toujeo Max U-300 SoloStar) 40 units (0.1333 mL) subcut DAILY 30 days ketoconazole 2% 1 appl topical BID lancets As directed lancets (OneTouch UltraSoft 2 Lancet) As directed TID metformin 1,000 mg PO BID 30 days miscellaneous medical supply One pair diabetic shoes venlafaxine 37.5 mg PO DAILY 30 days Tobacco use date assessed: 12/05/24 Dental Screening Dental Screen Date: 12/05/24 Did you have a dental visit in the last 12 months?: Yes Did you have a dental problem in the last 6 months where you did not have access to dental care?: No Was dental information given to patient?: Patient has dentist HPI HPI Comments History of Present Illness Details 54-year-old male presents for anxiety an d depression follow-up. He admits to taking buspirone and venlafaxine as prescribed without adverse reactions. His anxiety and depressive symptoms are generally well controlled. He has recently been grieving the loss of to close relatives. He has been making healthy dietary choices and walking frequently. He notes intermittent burning generalized abdominal pain for the past 1 month. No acute symptoms at this time. [facility] Medical History Postlaminectomy syndrome, lumbar region Lumbar radiculopathy Morbid obesity with BMI of 40.0-44.9, adult Asthma Incontinence of urine Incontinence of feces Swelling of right foot Swelling of left foot Arthritis Sciatica Back pain with history of spinal surgery Back pain Diabetes Surgical History No pertinent past surgical history Family History Mother Heart attack Status post double vessel coronary artery bypass Von Willebrand disease Father Diabetes High blood pressure High cholesterol Maternal Grandfather Alzheimer disease Maternal Grandmother Alzheimer disease Paternal Grandfather Alzheimer disease Paternal Grandmother Alzheimer disease Social History Household Members: Family Housing: Apartment Alcohol intake: former Patient Tobacco Use Status: Never used Tobacco e-Cigarette/Vaping Use: Never Used Second Hand Smoke Exposure: Yes service: No Current occupational status: employed 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 1. Little interest or pleasure in doing things: several days 2. Feeling down, depressed, or hopeless: nearly every day 3. Trouble falling or staying asleep, or sleeping too much: several days 4. Feeling tired or having little energy: several days 5. Poor appetite or overeating: several days 6. Feeling bad about yourself - or that you are a failure or have let yourself or your family down: not at all 7. Trouble concentrating on things, such as reading the newspaper or watching television: several days 8. Moving or speaking so slowly that other people could have noticed. Or the opposite - being so fidgety or restless that you have been moving around a lot more than usual: not at all 9. Thoughts that you would be better off or of hurting yourself in some way: not at all Total score: 8 Depression Screening Interpretation: Positive Depression Screening Follow-up: Existing condition and In treatment Depression Screening Done: Yes 28465 - PHQ-9 Billing: Yes Source: Developed by Drs. Daniel Tam, Delphine Stahl, Alberto Hu and colleagues, with an educational denise from [employer] Thrive Questionnaire Date Thrive assessed: 12/05/24 I am a: Patient What is your living situation today?: I have a steady place to live Within the past 12 months, did the food you bought not last and you didn't have the money to get more?: Never true Within the past 12 months, did you worry whether your food would run out before you got money to buy more?: Never true Do you have trouble paying for medicines?: Yes Do you have trouble getting transportation to medical appointments?: Yes Do you have trouble paying your heating and electricity bill?: Yes Do you have trouble taking care of your child, family member or friend?: No Do you have trouble with day-to-day activities such as bathing, preparing meals, shopping, managing finances, etc.?: No Are you currently unemployed and looking for a job?: No Are you interested in more education?: No Please select the resources that you would like help with: None Currently or been in a relationship where the following occur: No concerns reported THRIVE Score: 2 LEILANI-7 AMB Questionnaire LEILANI-7 Date LEILANI - 7 assessed: 12/05/24 Feeling nervous, anxious, or on edge: 2 = More than half the days Not being able to stop or control worryin = Several days Worrying too much about different things: 2 = More than half the days Trouble relaxin = Nearly every day Being so restless that it is hard to sit still: 2 = More than half the days Becoming easily annoyed or irritable: 3 = Nearly every day Feeling afraid as if something awful might happen: 0 = Not at all Total LEILANI-7 score (0-4 normal; 5-9 mild; 10-14 moderate; 15-21 severe): 13 Source: Developed by Drs. Daniel Tam, Delphine Stahl, Alberto Hu and colleagues, with an educational denise from [employer] LEILANI-7 Assessment Billing LEILANI-7 Assessment Tool: LEIALNI-7 Assessment 03220 ACT Questionnaire In the past 4 weeks, how much of the time did your asthma keep you from getting as much done at work, school or at home?: None of the time During the past 4 weeks, how often have you had shortness of breath?: 1-2 times a week During the past 4 weeks, how often did your asthma symptoms wake you up at night or earlier than usual in the morning?: 2-3 nights a week During the past 4 weeks, how often have you had to use your rescue inhaler or nebulizer medication?: 2-3 times a week How would you rate your asthma control during the past 4 weeks?: Somewhat controlled ACT Interpretation: Positive Score: 17 Review of Systems Const Details: Const Denies chills, Denies fatigue, Denies fever(s), Denies headache(s) and Denies weakness ENT Denies dizziness and Denies headache(s) Card Denies chest pain, Denies lightheadedness, Denies dyspnea and Denies other (Palpitations) Resp Denies cough, Denies dyspnea, Denies wheezing and Denies other ( shortness of b reath) GI Denies abdominal pain, Denies melena, Denies hematochezia, Denies change in bowel habits, Denies dyspepsia and Denies nausea Denies hematuria and Denies dysuria Musc Denies abnormal gait, Denies myalgias, Denies arthralgias, Denies numbness and Denies tingling Skin/Breast Denies rash, Denies unusual bruising and Denies wounds Neuro Denies abnormal gait, Denies dizziness, Denies headache(s), Denies memory loss, Denies numbness, Denies Sensory deficit (Neuro), Denies tingling and Denies weakness Psych Denies anxiety, Denies depression, Denies memory loss Endo Denies cold intolerance, Denies fatigue, Denies heat intolerance, Denies polydipsia and Denies polyuria Aller/Immun Denies wheezing Physical exam (Primary Care) Vital Signs: Last Vital Signs Temp 97.5 F 12/05/24 10:39 Pulse 74 12/05/24 10:39 Resp 16 12/05/24 10:39 BP 134/76 12/05/24 10:39 Pulse Ox 98 12/05/24 10:39 Oxygen Delivery Method Room Air 12/05/24 10:39 BMI result Body Mass Index 38.8 Tobacco/Smoking Status: Tobacco use Status Tobacco use date assessed 12/05/24 12/05/24 10:43 Patient Tobacco Use Status Never used Tobacco 12/05/24 10:38 e-Cigarette/Vaping Use Never Used 12/05/24 10:38 PHQ-9: PHQ-9 Score PHQ-9: Total score 8 12/05/24 10:49 Depression Screening Interpretation: Positive Depression Screening Follow-up: Existing condition and In treatment Thrive Assessment: Date of Thrive Assessment Date Thrive assessed 12/05/24 12/05/24 10:49 Currently or been in a relationship where the following occur: No concerns reported Const Other: General: no acute distress and well developed Nutritional Appearance: well nourished Orientation/consciousness: patient oriented x3 HENMT Head: Yes normocephalic and Yes atraumatic Eyes General: appearance normal, both eyes and all related structures Pupils: Equal, round and reactive pupils present EOM: EOMs intact bilaterally Resp Effort & Inspection: normal respiratory effort Auscultation: clear to auscultation bilaterally Cardio Rate: regular rate Rhythm: regular rhythm Heart sounds: S1 normal heart sound present, S2 normal heart sound present, no gallops, no murmurs and no rubs GI Palpation (GI): No Abdominal aortic bruit present, Soft to palpation, nontender, No hepatosplenomegaly present and No Rebound tenderness present Auscultation: normal bowel sounds General: Yes no CVA tenderness Back/Spine/Pelvis Back: no CVA tenderness Cervical Spine: cervical ROM normal and No Cervical spine tenderness Thoracic/Lumbar Spine: thoraco-lumbar ROM normal, No pain with thoraco-lumbar ROM, No thoracic spinal tenderness and No lumbar spinal tenderness Extrem General: Yes normal to inspection, No edema and No calf tenderness Skin General: warm and dry. Normal skin color. Normal skin turgor Neuro General: patient oriented x3, gait normal and no focal neuro deficit Cranial nerves: Yes Equal, round and reactive pupils present Cognition (Neuro): normal cognition Gait exam (Neuro): Normal gait present Sensory Exam: No Sensory deficit (Neuro) Psych Appearance: grossly normal Affect: normal affect Attitude: cooperative Thought process: Normal thought process present Coding Level of Care Code Est Pt Level 4 (19706) Diagnoses Anxiety and depression F41.9; F32.A Low TSH level R79.89 Dyslipidemia E78.5 Microalbuminuria R80.9 Generalized abdominal pain R10.84 Additional Codes Asthma Control Questionnaire - ACT Interpretation: Positive ([id number]) LEILANI-7 Assessment Billing - LEILANI-7 Assessment Tool: LEILANI-7 Assessment 58764 ([id number]) PHQ-9 - 05591 - PHQ-9 Billing: Yes ([id number]) Assessment & Plan Assessment & Plan (1) Anxiety and depression: Code(s): F41.9 - Anxiety disorder, unspecified; F32.A - Depression, unspecified Category: Medical Plan: Controlled anxiety and depressive symptoms. PHQ-9 and LEILANI-7 scores revealed mild depression and moderate anxiety respectively. Continue current treatment regimen. Routine exercise encouraged. Follow-up with worsening or new symptoms. May referred to a therapist for grieving as needed. Verbalized understanding and agreed with treatment plan. (2) Low TSH level: Code(s): R79.89 - Other specified abnormal findings of blood chemistry Category: Medical Plan: His recent TSH level was slightly low, 0.29, free T4 was normal. He did not get blood work done as planned for this visit. Encouraged to get blood work done today. Will review results and make changes as needed. Verbalized understanding and agreed with the plan. (3) Dyslipidemia: Code(s): E78.5 - Hyperlipidemia, unspecified Category: Medical Plan: Recent triglycerides and LDL levels are slightly elevated, 171 and 115 respectively, HDL level is slightly low, 36. Advised to limit foods high in saturated fat and avoid foods high trans fat. Routine exercise encouraged. Fast for 10-12 hours, may drink water, perform lipid panel blood work 2-3 days before next visit. Verbalized understanding and agreed with the plan. (4) Microalbuminuria: Code(s): R80.9 - Proteinuria, unspecified Category: Medical Plan: Recent urine microalbumin/creatinine ratio is slightly elevated, 43.4. BUN, creatinine, and GFR are normal. Likely dehydration. May also related to his diabetes. Adequate hydration encouraged. Will recheck urine microalbumin/creatinine ratio and make changes as needed. Verbalized understanding and agreed with the plan. (5) Generalized abdominal pain: Code(s): R10.84 - Generalized abdominal pain Category: Medical Plan: Reports intermittent generalized abdominal pain for the past 1 month. No associated symptoms. No acute symptoms at this time. Likely due to adverse reaction of metformin and Trulicity. He notes that he takes metformin without food. Encouraged to take his diabetic medication with meals. Follow-up with worsening or new symptoms. Verbalized understanding and agreed with the plan. Orders: Orders Microalbumin, Random (w Creat) 1 Month R80.9 - Proteinuria, unspecified Lipid Panel 1 Month E78.5 - Hyperlipidemia, unspecified
[2024-12-05 10:39] VITALS: BP 134/76; PULSE 74; RESP 16; TEMP 36.4; O2SAT 98; BMI 38.8
== END 2024-12-05 11:06 | disposition home or self-care (01) ==
LOC: HO.HMCFM 10:30
PROVIDERS: PCP Nurse Practitioner Family; Visit Provider Nurse Practitioner Family
DX: F41.9 Anxiety disorder, unspecified (principal); F32.A Depression, unspecified; R79.89 Other specified abnormal findings of blood chemistry; E78.5 Hyperlipidemia, unspecified; R80.9 Proteinuria, unspecified; R10.84 Generalized abdominal pain

== ENCOUNTER 2024-12-05 10:30 | Outpatient (REF) | payer MEDICARE, SELFPAY ==
[2024-12-05 14:36] LABS: Appearance Urine Clear; Color Urine Yellow; Glucose Urine UA >=1000 mg/dL (Negative); Leukocyte Esterase Urine Negative (Negative); Nitrite Urine Negative (Negative); PH 6.5 (5.0-9.0); Specific Gravity - Urine >= 1.030 (1.005-1.025); UMIC TRIGGER UACC YES; Urine Blood Negative (Negative); Urine Ketones Negative (Negative); Urine Protein Negative (Neg-Trace)
[2024-12-05 14:49] LABS: Bacteria Urine None Seen (None Seen); Hyaline Casts Urine 0-2 /LPF (0-2); RBC Urine 0-2 /HPF (0-2); Squamous Epithelial Cell Urine 0-2 /HPF (0-2); WBC Urine 0-5 /HPF (0-5)
[2024-12-05 14:51] LABS: TSH reflex Free T4 0.84 uIU/mL (0.32-4.0)
== END 2024-12-05 10:31 | disposition home or self-care (01) ==
LOC: HO.WFDLDS 10:30
PROVIDERS: PCP Nurse Practitioner Family; Visit Provider Nurse Practitioner Family
DX: F41.9 Anxiety disorder, unspecified (principal); F32.A Depression, unspecified; R79.89 Other specified abnormal findings of blood chemistry; E78.5 Hyperlipidemia, unspecified; R80.9 Proteinuria, unspecified; R10.84 Generalized abdominal pain; J45.909 Unspecified asthma, uncomplicated
CPT/HCPCS: 36415; 81001; 84443; 96127; 96160; 99212

== ENCOUNTER → 2025-01-14 10:01 | Outpatient (BNVA) | payer SELFPAY | PROVIDERS: PCP Nurse Practitioner Family; Visit Provider Nurse Practitioner Family | DX: Z13.89 Encounter for screening for other disorder (principal) ==

== ENCOUNTER 2025-01-14 10:03 | Outpatient (REF) | payer SELFPAY ==
[2025-01-14 12:34] LABS: Cholesterol 176 mg/dL (<200); Triglycerides 147 mg/dL (<150)
[2025-01-14 12:42] LABS: Appearance Urine Clear; Color Urine Yellow; Glucose Urine UA >=1000 mg/dL (Negative); Leukocyte Esterase Urine Negative (Negative); Nitrite Urine Negative (Negative); PH 5.5 (5.0-9.0); Specific Gravity - Urine >= 1.030 (1.005-1.025); UMIC TRIGGER UACC YES; Urine Blood Negative (Negative); Urine Ketones Trace mg/dL (Negative); Urine Protein Trace mg/dL (Neg-Trace)
[2025-01-14 12:47] LABS: HDL Cholesterol 37 mg/dL (>40); LDL Cholesterol Calculated 110 mg/dL (<100)
[2025-01-14 13:04] LABS: Bacteria Urine None Seen (None Seen); Creatinine Urine 149.57 mg/dL; Hyaline Casts Urine 0-2 /LPF (0-2); Microalbum/Creatinine Ratio Ur 39.4 ug/mg cr (<30); RBC Urine 0-2 /HPF (0-2); Squamous Epithelial Cell Urine 0-2 /HPF (0-2); WBC Urine 0-5 /HPF (0-5)
== END 2025-01-14 10:04 | disposition home or self-care (01) ==
LOC: HO.WFDLDS 10:03
PROVIDERS: Visit Provider Nurse Practitioner Family
DX: R80.9 Proteinuria, unspecified (principal); E78.5 Hyperlipidemia, unspecified
CPT/HCPCS: 36415; 80061; 81001; 82043; 82570